=== PATIENT | female | born 1945 | race Caucasian/White ===

== ENCOUNTER 2018-08-16 20:24 | Emergency (ER) | payer OTHER ==
[~2018-08-16] VITALS: Ht 157.5 cm; Wt 63.5 kg
[~2018-08-16 20:24] MED LIST: DILT40TA; NAPR250T74
[2018-08-16] MEDS ORDERED: PANTOPRAZOLE 40 MG/10 ML VIAL IV ONE (22:00)
[2018-08-16 22:34] LABS: Hematocrit 16.2 % (36.0-46.0); Mean Corpuscular Hemoglobin 23.8 pg (28.0-32.0); Mean Corpuscular Hgb Conc. 30.8 g/dL (32.0-36.0); Mean Corpuscular Volume 77.3 fL (80.0-100.0); Platelet Count (auto) 350 10^3/uL (140-450); Red Cell Distribution Width 19.4 % (11.8-14.3); White Blood Cell 20.5 10^3/uL (4.4-10.8)
[2018-08-16 22:48] LABS: INR 1.06 (0.9-1.15); Prothrombin Time 11.3 sec (9.27-12.13)
[2018-08-16 22:52] LABS: Albumin 2.4 g/dL (3.4-5.0); BUN/Creatinine Ratio 41.9; Calcium 7.5 mg/dL (8.5-10.1); Potassium 4.1 mmol/L (3.5-5.1)
[2018-08-16 22:57] LABS: Bilirubin, Total 0.3 mg/dL (0.2-1.0); Total Protein 5.2 g/dL (6.4-8.2)
[2018-08-16] MEDS ORDERED: SODIUM CHLORIDE 0.9% 1,000 ML IV ONE (23:00)
[2018-08-16 23:10] LABS: Basophils % (manual) 0 (0.0-2.0); Blast Cells 0; Eosinophils % (manual) 0 (0-7); Myelocytes % 0; Promyelocytes % 0; Reactive Lymphocytes 0
[2018-08-17] VITALS (10 sets, daily range): BP systolic 121–136; BP diastolic 55–68
[2018-08-17 00:28] LABS: Band Neutrophils % (manual) 1; Lymphocytes % (manual) 2 (10.0-50.0); Metamyelocytes % 1; Monocytes % (manual) 9 (0-12)
[2018-08-17 01:20] LABS: Urine Bacteria FEW /hpf (None Seen); Urine Blood 2+ /uL (Negative); Urine Hyaline Cast FEW /lpf (0 - 2); Urine Mucus FEW (None Seen); Urine Specific Gravity 1.016 (1.001-1.035); Urine WBC 45 /hpf (0 - 5)
[2018-08-17] MEDS ORDERED: cefTRIAXone 1GM/50ML D5W 50 ML IV ONE (03:30)
[2018-08-17] MEDS ORDERED: metroNIDAZOLE 500MG/100ML 100 ML IV ONE (03:30)
[2018-08-17] MEDS ORDERED: PHYTONADIONE (VIT K)10 MG/ML 1ML VIAL SUBCUT ONE (04:00)
[2018-08-17] MEDS ORDERED: PANTOPRAZOLE 80 MG in SODIUM CHL 0.9% 60 ML IV ONE (04:15)
[2018-08-17] MEDS ORDERED: PANTOPRAZOLE 40 MG/10 ML VIAL IV ONE (04:57)
[2018-08-17] MEDS ORDERED: cefTRIAXone SOD 1,000 MG VL ONE (05:17)
== END 2018-08-17 07:47 | disposition short-term general hospital (02) ==
LOC: EDBD 20:24 → ER 20:24
DX: K92.2 Gastrointestinal hemorrhage, unspecified (principal); D64.9 Anemia, unspecified; D72.829 Elevated white blood cell count, unspecified; N39.0 Urinary tract infection, site not specified; N28.9 Disorder of kidney and ureter, unspecified; E11.65 Type 2 diabetes mellitus with hyperglycemia; I10 Essential (primary) hypertension; M19.90 Unspecified osteoarthritis, unspecified site; Z79.899 Other long term (current) drug therapy; Z98.51 Tubal ligation status
CPT/HCPCS: 36415; 36430; 70450; 71045; 74176; 80053; 81001; 84484; 85007; 85027; 85610; 86850; 86900; 86901; 86920; 87040; 93005; 96361; 96365; 96367; 96368; 96372; 96376; 99285; C9113; J0696; J3430; J3490; J7030; P9016; J7060

== ENCOUNTER 2024-09-29 19:37 | Inpatient (IN) | payer OTHER ==
[~2024-09-29] VITALS: Ht 162.6 cm; Wt 95.6 kg
[2024-09-29] MEDS: VANCOMYCIN 1GM/250ML KIT 250 ML IV ONE (00:15)
[2024-09-29] MEDS: SODIUM CHLORIDE 0.9% 1,000 ML IV ONE ×3 (00:30→23:30)
--- NOTE | 2024-09-29 20:14 | ED.PDOC ---
History of Present Illness HPI Comments This is a 79-year-old female who comes in with chief complaint of generalized weakness. The patient states that she has been feeling weak for the last one month. According to the family, the patient has been laying on the couch for approximately one week. They tried giving her some ensure to drink but unfor tunately she could not take that because she does not have an appetite. She denies any chest pain or shortness for breath. She is having some total body pain from her rheumatoid arthritis. She currently takes methotrexate for that. Upon arrival, the patient was Accu-Chek was 201. Initially, the patient was blood pressure was 87 systolic. Chief Complaint: General Weakness Time Seen by MD: 19:47 Primary Care Provider: JENS Mays Notes: Nurses Notes, Supervisor Dyer Notes, Medications, Allergies (No allergies to medications) Allergies: Coded Allergies: NO KNOWN ALLERGIES (Unverified , 01/19/12) Home Meds Reported Medications Naproxen (Naprosyn) 250 Mg Tab 01/19/12 Diltiazem Hcl (Cardizem) 30 Mg Tab 01/19/12 Information Source: Emergency Med Personnel Mode of Arrival: EMS Severity: Moderate Timing: Days Duration: Since onset Prehospital treatment: Cereal Maker, IVF Associated signs and symptoms Generalized weakness but no chest pain or shortness for breath Past Medical History PAST MEDICAL HISTORY: Arthritis (Rheumatoid arthritis), HTN Surgical History: BTL, Tonsillectomy Surgical History (Other): Cataract surgery, bilateral knee surgery METAL SOLDERER History: No Pertinent METAL SOLDERER History Family History Family History: Reviewed,noncontributory to illness Social History Smoker: Non-Smoker Alcohol: Occasionally Drugs: Denies Drug Use Lives In: Home Constitutional: reports: weakness; denies: chills, diaphoresis, fatigue, fever, malaise, sweats, others EENTM: denies: blurred vision, double vision, ear bleeding, ear discharge, ear drainage, ear pain, ear ringing, eye pain, eye redness, hearing loss, mouth pain, mouth swelling, nasal discharge, nose bleeding, nose congestion, nose pain, photophobia, tearing, throat pain, throat swelling, voice changes, others Respiratory: denies: cough, hemoptysis, orthopnea, SOB at rest, shortness of breath, SOB with excertion, stridor, wheezing, others Cardiovascular: denies: chest pain, dizzy spells, diaphoresis, Dyspnea on exertion, edema, irregular heart beat, left arm pain, lightheadedness, palpitations, PND, syncope, others Gastrointestinal: reports: poor appetite; denies: abdomen distended, abdominal pain, blood streaked bowels, constipated, diarrhea, dysphagia, difficulty swallowing, hematemesis, melena, nausea, poor fluid intake, rectal bleeding, rectal pain, vomiting, others Genitourinary: denies: abnormal vagina bleeding, burning, dyspareunia, dysuria, flank pain, frequency, hematuria, incontinence, pain, , vagina discharge, urgency, others Neurological: denies: dizziness, fainting, headache, left sided numbness, left sided weakness, numbness, paresthesia, pre-existing deficit, right sided numbness, right sided weakness, seizure, speech problems, tingling, tremors, weakness, others Musculoskeletal: denies: back pain, gout, joint pain, joint swelling, muscle pain, muscle stiffness, neck pain, others Integumetry: denies: bruises, change in color, change in hair/nails, dryness, laceration, lesions, lumps, rash, wounds, others Hematologic/Lymphatic: denies: anemia, blood clots, easy bleeding, easy bruising, swollen glands, others Endocrine: denies: excessive hunger, excessive sweating, excessive thirst, excessive urination, flushing, intolerance to cold, intolerance to heat, unexplained weight gain, unexplained weight loss, others Psychiatric: denies: anxiety, bipolar disorder, depression, hopeless, panic disorder, schizophrenia, sleepless, suicidal, others Physical Exam General Appearance: Moderate Distress, Other (Disheveled with skin infection and breakdown) HEENT: Normal ENT Inspection, Pharynx Normal, TMs Normal Neck: Full Range of Motion, Non-Tender, Normal, Normal Inspection Respiratory: Chest Non-Tender, Lungs Clear, No Accessory Muscle Use, No Respiratory Distress, Normal Breath Sounds Cardiovascular: No Edema, No JVD, No Murmur, No Gallop, Normal Peripheral Pulses, Regular Rate/Rhythm Breast Exam: Deferred Gastrointestinal: Diffuse, No Organomegaly, No Pulsatile Mass, Normal Bowel Sounds, Soft, Tenderness Genitalia: Deferred Pelvic: Deferred Rectal: Deferred Extremities: No calf tenderness, Normal capillary refill, Pedal edema Musculoskeletal : Apperance: Normal Neurologic: Alert, water and sewer systems supervisor II-XII nml as Tested, Motor Weakness, Normal Affect, Normal Mood, No Sensory Deficits Cerebellar Function: Normal Reflexes: Normal Skin: Dry, Warm, Other (Significant skin breakdown) Lymphatic: No Adenopathy Was a procedure done? Was a procedure done?: No EKG EKG : Pulse Rate (adult): 122 [place]: Normal Cardiac Rhythm: ST Block: None ST: Nonsp Differential Dx Considerations may include: Generalized weakness, electrolyte imbalance, dehydration, sepsis, UTI X-Ray, Labs, Meds, VS Vital Signs Date Time Temp Pulse Resp B/P (MAP) Pulse Ox O2 Delivery O2 Flow Rate FiO2 09/29/24 20:14 122 09/29/24 19:42 122 09/29/24 19:40 98.3 105 20 100/55 (70) 94 IV Hep-Lock was established The patient was being given normal saline as a bolus. The chest x-ray is negative The patient was being signed out to Dr. Kerns Images Reviewed?: Images reviewed and evaluated by me Time of 1ST Reevaluation: 20:14 Reevaluation 1ST: Unchanged Patient Education/Counseling: Diagnosis, Treatment, Prognosis Family Education/Counseling: No Family Present Departure 1 Departure Time of Disposition: 21:58 Impression: Primary Impression: Generalized weakness Disposition: 30 STILL A PATIENT Condition: Fair Critical Care Note Critical Care Time?: No Stability Stability form required: Yes Stable for transfer: Intended for transfer (Health plan request transfer), To designated facility Heart Score Heart Score: Heart Score Response (Comments) Value History N/A 0 EKG N/A 0 Age N/A 0 Risk Factors N/A 0 Troponin N/A 0 Total 0 DALLAS FABIAN MD Sep 29, 2024 20:14
--- NOTE | 2024-09-29 20:57 | DVH ---
CHEST RADIOGRAPH Indication: weakness Technique: Single frontal view of the chest was obtained COMPARISON: None FINDINGS: Lines and Tubes: None Lungs: Clear Pleura: No effusion.No pneumothorax. Cardiomediastinal contours: Unremarkable IMPRESSION: No abnormality demonstrated.
[2024-09-29] MEDS: SODIUM CHLORIDE 0.9% 500 ML IVB ONE (22:04)
[2024-09-29 22:09] LABS: Urine Bacteria MANY /hpf (None Seen); Urine Blood 1+ /uL (Negative); Urine Clarity Ex.Turbid (Clear); Urine Color YELLOW (Yellow); Urine Mucus MODERATE (None Seen); Urine Protein, UAD 1+ (Negative); Urine Specific Gravity 1.015 (1.001-1.035); Urine Squamous Epithelial Cell None Seen /hpf (<5); Urine Urobilinogen Normal (Negative); Urine WBC 482 /HPF (0-5); Urine pH 5.5 (5.0-9.0)
[2024-09-29 22:28] LABS: White Blood Cell 3.3 10^3/uL (4.4-10.8)
[2024-09-29 22:30] VITALS: PULSE 130; RESP 24; O2SAT 99
[2024-09-29 22:30] LABS: Hematocrit 13.1 % (36.0-46.0); Mean Corpuscular Hemoglobin 35.4 pg (28.0-32.0); Mean Corpuscular Volume 107.3 fL (80.0-100.0); Red Blood Cells 1.22 10^6/uL (4.0-5.20)
[2024-09-29 22:31] LABS: Red Cell Distribution Width 28.9 % (11.8-14.3)
[2024-09-29 22:32] LABS: Hemoglobin 4.3 g/dL (12.2-16.2); Platelet Count (auto) 15 10^3/uL (140-450)
[2024-09-29 22:34] LABS: Band Neutrophils % (manual) 0; Basophils % (manual) 0 (0.0-2.0); Blast Cells 0; Eosinophils % (manual) 0 (0-7); Metamyelocytes % 0; Myelocytes % 0; Promyelocytes % 0; Reactive Lymphocytes 0
[2024-09-29 22:44] LABS: Alanine Aminotransferase 11 U/L (7-40); Alkaline Phosphatase 80 U/L (46-116); Anion Gap 18 (5-15); BUN/Creatinine Ratio 43.7 (10.0-20.0); Calcium 8.8 mg/dL (8.7-10.4); Chloride 102 mmol/L (98-107); Potassium 4.3 mmol/L (3.5-5.1)
[2024-09-29 22:50] LABS: Lymphocytes % (manual) 25 (10.0-50.0); Monocytes % (manual) 1 (0-12)
[2024-09-29 22:51] LABS: Anisocytosis Slight; Platelet Estimate Decreased
[2024-09-29 22:52] LABS: Aspartate Aminotransferase 11 U/L (13-40); Bilirubin, Total 2.4 mg/dL (0.2-1.0); Blood Urea Nitrogen 31 mg/dL (9-23); Carbon Dioxide 12 mmol/L (20-31); Glucose 278 mg/dL (74-106); Ovalocytes FEW; Sodium 132 mmol/L (136-145); Total Protein 5.1 g/dL (5.7-8.2)
[2024-09-29 22:53] LABS: Albumin 3.2 g/dL (3.2-4.8); Lactic Acid w/Reflex 10.1 mmol/L (0.4-2.0)
--- NOTE | 2024-09-29 22:53 | ED.PDOC ---
History of Present Illness HPI Comments This is a 79-year-old female who comes in with chief complaint of generalized weakness. Per son, the patient is reported to have been feeling weak for past month, while dealing with a cold, and was found, today, sitting in her own urine and feces after being unable to move from her couch for a week when she began refusing to eat secondary to poor appetite. Son comments on roommate checking in on patient, occasionally, but never noticing on the patient's deteriorating condition or being asked by the patient for any assistance. Patient has no reported additional symptoms at this time. Chief Complaint: General Weakness Time Seen by MD: 20:30 Primary Care Provider: JENS Reviewed Notes: Nurses Notes, Jig Builder Notes, Medications, Allergies Allergies: Coded Allergies: NO KNOWN ALLERGIES (Unverified , 01/19/12) Home Meds Reported Medications Naproxen (Naprosyn) 250 Mg Tab 01/19/12 Diltiazem Hcl (Cardizem) 30 Mg Tab 01/19/12 Information Source: Relative (Child), Emergency Med Personnel, [facility] Medical Record Mode of Arrival: EMS Severity: Moderate Timing: Months Duration: Since onset Prehospital treatment: 12 Lead EKG, Armoring Machine Operator Review of Systems: REVIEW OF SYSTEMS: No fever, no chills, or fatigue HEENT: No sore throat, no earache, no congestion, no neck pain. Cardiac: No chest pain. No palpitations. Lungs: No shortness of breath, no cough. GI: No nausea, no vomiting, no diarrhea, no constipation, no abdominal pain : No dysuria, frequency, or urgency. No hematuria. Musculoskeletal: No joint pain , no joint swelling, no extremity edema. Skin: No rash, no itching. Neuro: Weakness. No headache, no dizziness Vital Signs Vital Signs Date Time Temp Pulse Resp B/P (MAP) Pulse Ox O2 Delivery O2 Flow Rate FiO2 09/30/24 04:15 105 20 86/44 (58) 98 09/30/24 04:15 98.3 98.3 09/29/24 22:30 Room Air* 0 21 Physical Exam General: Awake, alert and oriented. No acute distress. Skin: Skin in warm, dry and intact without rashes or lesions. HEENT: The head is normocephalic and atraumatic. Conjunctivae are clear without exudates or hemorrhage. Sclera is non-icteric. Neck: Normal range of motion. No JVD. Cardiac: Regular rate Respiratory: No signs of respiratory distress. No Stridor. Genitals: ulceration to left inguinal area Musculoskeletal: patient declined evaluation of her sacral area at this time Extremities: Upper and lower extremities are atraumatic in appearance without tenderness or deformity. Neurological: The patient is awake, alert and oriented to person, place, and time with normal speech. Speech is clear. There is no facial asymmetry. Psychiatric: Appropriate mood and affect. Good judgement and insight. No visual or auditory hallucinations. No suicidal or homicidal ideation. Past Medical History PAST MEDICAL HISTORY: Arthritis (Rheumatoid arthritis), HTN Past Medical History (Other): History of frequent falls Surgical History: BTL, Tonsillectomy Surgical History (Other): Cataract surgery, bilateral knee surgery ECG TECHNICIAN History: No Pertinent ECG TECHNICIAN History Family History Family History: Reviewed,noncontributory to illness Social History Smoker: Non-Smoker Alcohol: Occasionally Drugs: Denies Drug Use Lives In: Home Was a procedure done? Was a procedure done?: No EKG EKG #1: Pulse Rate (adult): 122 [place]: Normal Cardiac Rhythm: ST Block: None Hypertrophy: None ST: Normal EKG #2: Pulse Rate (adult): 141 [place]: Normal Cardiac Rhythm: ST Block: None Hypertrophy: None ST: Normal Differential Dx Considerations may include: Differential diagnosis considered includes but not limited to stroke, head injury, seizure, metabolic disturbance, electrolyte imbalance, infection, substance intoxication, psychiatric cause, other systemic illness, other X-Ray, Labs, Meds, VS Vital Signs Date Time Temp Pulse Resp B/P (MAP) Pulse Ox O2 Delivery O2 Flow Rate FiO2 09/30/24 04:15 105 20 86/44 (58) 98 09/30/24 04:15 98.3 105 20 86/44 98.3 09/30/24 04:00 110 09/30/24 03:30 98.3 113 20 91/45 98.3 09/30/24 03:00 98.5 107 21 90/40 98.5 09/30/24 02:30 98.4 118 20 93/34 98.4 09/30/24 02:15 98.1 116 23 94/40 98.1 09/30/24 02:15 98.1 116 23 94/40 (58) 98 98.1 09/30/24 01:55 98.3 112 22 112/52 98.3 09/30/24 00:29 125 24 106/43 (64) 99 09/30/24 00:00 125 09/29/24 22:53 141 09/29/24 22:30 130 24 99 Room Air* 0 21 09/29/24 22:30 97.5 130 24 183/133 (150) 97.5 09/29/24 22:12 141 09/29/24 22:12 97.0 148 22 88/43 (58) 87 97.0 09/29/24 20:14 122 09/29/24 19:42 122 09/29/24 19:40 98.3 105 20 100/55 (70) 94 Lab Test 09/30/24 01:08 09/30/24 00:09 09/29/24 23:20 09/29/24 22:59 Range/Units Troponin I High Sensitivity 39 *H </=34 ng/L Lactic Acid Level 8.5 *H 0.4-2.0 mmol/L Influenza Type A Antigen Negative Negative Influenza Type B Antigen Negative Negative SARS-CoV-2 Antigen (Rapid) Negative NEGATIVE Ammonia 31 11-32 umol/L Test 09/29/24 22:54 09/29/24 22:00 Range/Units Troponin I High Sensitivity 5 5 </=34 ng/L White Blood Count 3.3 L 4.4-10.8 10^3/uL Red Blood Count 1.22 L 4.0-5.20 10^6/uL Hemoglobin 4.3 *L 12.2-16.2 g/dL Hematocrit 13.1 L 36.0-46.0 % Mean Corpuscular Volume 107.3 H 80.0-100.0 fL Mean Corpuscular Hemoglobin 35.4 H 28.0-32.0 pg Mean Corpuscular Hemoglobin Concent 33.0 32.0-36.0 g/dL Red Cell Distribution Width 28.9 H 11.8-14.3 % Platelet Count 15 *L 140-450 10^3/uL Mean Platelet Volume 9.8 6.9-10.8 fL Neutrophils (%) (Auto) 37.0-80.0 % Lymphocytes (%) (Auto) 10.0-50.0 % Monocytes (%) (Auto) 0.0-12.0 % Basophils (%) (Auto) 0.0-2.0 % Neutrophils # (Auto) 1.6-8.6 10 ^3/uL Lymphocytes # (Auto) 0.4-5.4 10 ^3/uL Monocytes # (Auto) 0-1.3 10 ^3/uL Differential Total Cells Counted 100.0 100 Neutrophils % (Manual) 74 37.0-80.0 Band Neutrophils % (Manual) 0 Lymphocytes % (Manual) 25 10.0-50.0 Monocytes % (Manual) 1 0-12 Eosinophils % (Manual) 0 0-7 Basophils % (Manual) 0 0.0-2.0 Metamyelocytes % (manual) 0 Myelocytes % (Manual) 0 Promyelocytes % (Manual) 0 Blast Cells % (Manual) 0 Reactive Lymphocytes 0 Platelet Estimate Decreased Anisocytosis (manual) Slight Microcytosis Slight Ovalocytes Few Schistocytes Few Prothrombin Time 13.1 H 9.3-11.8 sec Prothrombin Time INR 1.26 H 0.9-1.15 Urine Color Yellow Yellow Urine Clarity Ex.turbid Clear Urine pH 5.5 5.0-9.0 Urine Specific [place] 1.015 1.001-1.035 Urine Protein 1+ H Negative Urine Ketones Negative Negative Urine Blood 1+ H Negative /uL Urine Nitrite Negative Negative Urine Bilirubin Negative Negative Urine Urobilinogen Normal Negative mg/dL Urine Leukocyte Esterase 3+ Negative /uL Urine RBC None seen 0 - 4 /hpf Urine Microscopic WBC 482 H 0-5 /HPF Urine Squamous Epithelial Cells None seen <5 /hpf Urine Bacteria Many H None Seen /hpf Urine Mucus Moderate None Seen Urine Glucose Normal Normal mg/dL Sodium Level 132 L 136-145 mmol/L Potassium Level 4.3 3.5-5.1 mmol/L Chloride Level 102 98-107 mmol/L Carbon Dioxide Level 12 L 20-31 mmol/L Anion Gap 18 H 5-15 Blood Urea Nitrogen 31 H 9-23 mg/dL Creatinine 0.71 0.550-1.02 mg/dL Glomerular Filtration Rate Calc 86 >90 mL/min BUN/Creatinine Ratio 43.7 H 10.0-20.0 Serum Glucose 278 H 74-106 mg/dL Lactic Acid Level 10.1 *H 0.4-2.0 mmol/L Calcium Level 8.8 8.7-10.4 mg/dL Magnesium Level 1.9 1.6-2.6 mg/dL Total Bilirubin 2.4 H 0.2-1.0 mg/dL Aspartate Amino Transferase (AST) 11 L 13-40 U/L Alanine Aminotransferase (ALT) 11 7-40 U/L Alkaline Phosphatase 80 46-116 U/L Creatine Kinase 21 L 34-145 U/L C-Reactive Protein High Sensitivity 10.66 H <1.0 mg/dL Total Protein 5.1 L 5.7-8.2 g/dL Albumin 3.2 3.2-4.8 g/dL Thyroid Stimulating Hormone (TSH) 0.97 0.55-4.78 uIU/mL Plasma/Serum Blood Alcohol < 3.0 <10 mg/dL Current Medications Medications (Trade) Dose Ordered Sig/Jovon Route Start Time Stop Time Status Last Admin Sodium Chloride 500 ml @ 500 mls/hr Q1H ONCE IVB 09/29/24 20:00 09/29/24 20:59 DC 09/29/24 22:04 Sodium Chloride 1,000 ml @ 1,000 mls/hr Q1H ONCE IV 09/29/24 23:30 09/30/24 00:29 DC 09/29/24 23:30 Sodium Chloride 1,000 ml @ 1,000 mls/hr Q1H ONCE IV 09/29/24 23:30 09/30/24 00:29 DC 09/29/24 23:30 Sodium Chloride 1,000 ml @ 130 mls/hr Q7H42M ONCE IV 09/29/24 23:30 09/30/24 07:11 09/29/24 00:30 Ceftriaxone Sodium 50 ml @ 100 mls/hr ONCE ONCE IV 09/29/24 23:30 09/29/24 23:59 DC 09/29/24 23:45 Vancomycin HCl 250 ml @ 250 mls/hr ONCE ONCE IV 09/29/24 23:30 09/30/24 00:29 DC 09/29/24 00:[address] [address] Ph: [phone] DIAGNOSTIC IMAGING Diagnostic Imaging Report : [id number] Signed PATIENT: AILIN JORGENSEN ACCT: [id number] UNIT: [id number] : 1945 LOC: ER ROOM / BED: / AGE / SEX: 79 / F ADM STATUS: REG ER SERVICE 54 ORDERING PHYSICIAN: DALLAS FABIAN MD PROCEDURE(s): CXRP - CHEST PORTABLE REASON: weakness ORDER NUMBER(s): [id number], ACCESSION NUMBER(s): [id number] CHEST RADIOGRAPH Indication: weakness Technique: Single frontal view of the chest was obtained COMPARISON: None FINDINGS: Lines and Tubes: None Lungs: Clear Pleura: No effusion.No pneumothorax. Cardiomediastinal contours: Unremarkable IMPRESSION: No abnormality demonstrated. ATED BY: JOHNNY HAMILTON MD DICTATED DATE/TIME: 09/29/242054 SIGNED BY: JOHNNY HAMILTON MD SIGNED DATE/TIME: 09/29/242054 CC: Time of 1ST Reevaluation: 21:58 Reevaluation 1ST: Unchanged Patient Education/Counseling: Diagnosis, Treatment, Other (Need to admit) Family Education/Counseling: Diagnosis, Treatment, Other (Need to admit) Departure 1 Departure Time of Disposition: 21:58 Impression: Primary Impression: Generalized weakness Disposition: 30 STILL A PATIENT Condition: Fair Comments 79-year-old female who presents to the emergency department with generalized weakness. Found to have suspected sepsis likely secondary to urinary tract infection, hyponatremia, hypotension, severe anemia requiring blood transfusion. Antibiotics, blood transfusion initiated in the emergency department. Levophed initiated for systolic blood pressure remaining in the 90s over 40s. Patient remained awake, alert oriented. Patient admitted for further treatment, katerine luation and monitoring. Authorization number [id number] (Dr. Smith @3:25am) Extensive evaluation was performed in attempt to identify or rule out: (See differential diagnosis section) The following tests were ordered, and results were reviewed by me: (See diagnostic results section) The following test were independently interpreted by me: N/A I reviewed and agreed with the following test results read by other providers: N/A I reviewed the following notes from the pt's past medical encounters: [August 16, 2018 encounter for GI bleeding] Additional information was gathered from interviewing the following independent historians: Son at bedside Discussion of management or test interpretation with external physician/other qualified health care manager cna: Dr. Fabian, Dr. Smith Addressed an acute or chronic illness that poses a threat to life or bodily function: Severe anemia requiring blood transfusion, suspected sepsis, hyponatremia, Decision regarding hospitalization or escalation of hospital level of care: Risk and benefits of admission for further treatment of patient's condition was considered. Due to patient's current clinical condition, high risk of decline and poor outcome if discharged and need for further inpatient management and monitoring, patient will be admitted to the hospital. Drug therapy requiring intensive monitoring for toxicity: N/A Parenteral controlled substances: N/A Decision regarding elective major surgery with identified patient or procedure risk factors: N/A Decision regarding emergency major surgery: N/A Decision not to resuscitate or to de-escalate care because of poor prognosis: N/A Diagnosis or treatment significantly limited by social determinants of health: N/A Critical Care Note Critical Care Time?: Yes (45 min-critical care time only) Stability Stability form required: No Heart Score Heart Score: Heart Score Response (Comments) Value History N/A 0 EKG N/A 0 Age N/A 0 Risk Factors N/A 0 Troponin N/A 0 Total 0 I personally scribed for MIKEY HAIRSTON MD ([email or web address]) on 09/29/24 at 22:53. Electronically submitted by Neel Zhao ([email or web address]). I personally scribed for MIKEY HAIRSTON MD ([email or web address]) on 09/30/24 at 00:01. Electronically submitted by Neel Zhao ([email or web address]). MIKEY HAIRSTON MD Sep 29, 2024 22:53
[2024-09-29 23:01] LABS: INR 1.26 (0.9-1.15); Prothrombin Time 13.1 sec (9.3-11.8)
[2024-09-29 23:07] LABS: Magnesium 1.9 mg/dL (1.6-2.6)
[2024-09-29 23:10] LABS: Blood Alcohol < 3.0 mg/dL (<10); Creatine Kinase IFCC 21 U/L (34-145)
[2024-09-29 23:17] LABS: CRP High Sensitivity 10.66 mg/dL (<1.0)
[2024-09-29] MEDS: cefTRIAXone 1GM/50ML D5W 50 ML IV ONE (23:45)
[2024-09-30] VITALS (65 sets, daily range): BP systolic 86–127; BP diastolic 34–77; PULSE 78–122; RESP 13–23; TEMP 97.7–98.5; O2SAT 97–100
[2024-09-30] LABS: COVID19 ANTIGEN SOFIA FIA NEGATIVE (NEGATIVE); Rapid Influenza A Negative (Negative); Rapid Influenza B Negative (Negative)
--- NOTE | 2024-09-30 02:30 | DVH ---
EXAM: CT HEAD WITHOUT CONTRAST INDICATION: Altered mental status TECHNIQUE: CT of the head without intravenous contrast. Radiation Dose Information: CT Dose: CTDI volume is 50.77 mGy. Dose-length product is 1541.26 mGy*cm The dose indicators for CT are the volume Computed Tomography (CT) Dose Index (CTDIvol) and the Dose Length Product (DLP), and are measured in units of mGy and mGy-cm, respectively. These indicators are not patient dose, but values generated from the CT scanner acquisition factors. The report includes radiation exposure data for exposures received during this examination. COMPARISON: None FINDINGS: There is no evidence of acute intracranial hemorrhage, extra-axial collection, mass effect, midline s hift, herniation or hydrocephalus. The ventricles, sulci and cisterns are age appropriate. Right frontal calcified meningioma. The farmer-white differentiation is intact. Patchy periventricular and subcortical white matter hypoattenuation is nonspecific but may be related to small vessel ischemic disease. The visualized paranasal sinuses and mastoid air cells are clear. The surrounding soft tissues and osseous structures are unremarkable. IMPRESSION: 1. No acute intracranial abnormality.
--- NOTE | 2024-09-30 02:37 | DVH ---
Exam: CT CT AB PEL WITH IV CON ONLY History: Suspected sepsis Comparison Study: None available at time of dictation. Contrast: 100 cc Omnipaque 300 TECHNIQUE: A digital sheet rock taper image was obtained. During the uneventful, intravenous administration of c ontrast material, multislice data acquisition was obtained through the abdomen and pelvis. The data s et was subsequently reconstructed into axial images. Images were reviewed on a work station using a c ombination of axial and multiplanar using a variety of window levels and settings. All CT scans at this medical facility are performed using dose modulation techniques as appropriate t o a performed exam including the following: Automated exposure control was utilized; adjustment of th e MA and/or KV according to patient size; and use of iterative reconstruction technique. Radiation Dose Information: CT Dose: Dose-length product is 1541.3 mGy*cm FINDINGS: Imaged portions of the lung bases demonstrate bibasilar airspace opacities with small right pleural e ffusion and trace left pleural effusion. Nodular opacity in the right lower lobe measuring 3.0 cm. Liver, spleen, pancreas and adrenal glands appear unremarkable. The kidneys enhance symmetrically. 1. 0 cm right renal cyst. 1.1 cm calculus in the left renal pelvis with mild prominence of the left kailey l collecting system. Additional 4 mm calculus in the left upper pole. The gallbladder appears mildly prominent with enhancement of the gallbladder wall and trace pericholecystic fluid. The uterus is retroverted live multiple fibroids some of which are calcified. The ascending colon dem onstrates mild wall thickening. Similar appearance of the descending colon. Marked diverticulosis of the sigmoid colon. Small amount of free fluid. No evidence of free intraperitoneal air. Bilateral fe moral hardware is noted. IMPRESSION: 1. Trace bilateral pleural effusion with bibasilar opacities. More nodular opacity in the right lowe r lobe may represent focal infectious process or round atelectasis. 2. Prominent gallbladder with mild pericholecystic fluid, nonspecific, correlation with clinical symp toms and possible ultrasound is recommended. 3. Nonspecific colonic wall thickening may represent colitis versus nondistention. 4. 1.1 cm calculus in the left renal pelvis with mildly prominent left renal collecting system.
[2024-09-30] MEDS: IOHEXOL 300 MG/ML 100ML BOTTLE IJ ONE (02:57)
[2024-09-30] MEDS: NOREPINEPHRINE 8 MG/250ML KIT 250 ML IV SCH (05:30)
--- NOTE | 2024-09-30 05:41 | DVH ---
EXAM: XR Chest, 1 View CLINICAL INDICATION: post central line TECHNIQUE: Frontal view of the chest. COMPARISON: XY CHEST PORTABLE on DOS: 09/29/24 FINDINGS: LUNGS AND PLEURAL SPACES: Pulmonary congestion. HEART: Unremarkable. No cardiomegaly. MEDIASTINUM: Unremarkable. Normal mediastinal contour. BONES/JOINTS: Unremarkable. No acute fracture. TUBES, LINES AND DEVICES: Right IJ venous catheter with distal tip in SVC. No pneumothorax. OTHER FINDINGS: . IMPRESSION: Right IJ venous catheter with distal tip in SVC. No pneumothorax.
[2024-09-30] MEDS ORDERED: MORPHINE SULFATE INJ 2 MG/ml SYRG IV PRN (05:45)
[2024-09-30] MEDS ORDERED: VANCOMYCIN PER PHARMACY 0 MG IV SCH (05:45)
--- NOTE | 2024-09-30 05:58 | DVHHPRES ---
History of Present Illness Resident Creating Document: CAROLYNN GIRON RESIDENT History of Present Illness Martine Peñaloza is a 79-year-old female patient who presents to ED via EMS with chief complaint of generalized weakness for the past month associated with loss of appetite. Patient's son reports that when he came to visit her on 09/29/2024, he found her in her feces lying on the floor, deciding to call EMS. Per patient she has no complaints. Son reports that before she was able to eat solid foods, but has only been able to drink ensure in the past few weeks, ass ociated with unintentional weight loss. Review of system is unremarkable per patient. Past medical history: Hypertension, upper GI bleed secondary to peptic ulcer due to ibuprofen abuse in 2018, rheumatoid arthritis currently on methotrexate, urinary incontinence. Surgical history: EGD and colonoscopy which showed no malignancy per patient (in 2018), bilateral knee repair and bilateral hip replacement. Family history: Unknown (patient is adopted) Social history: She lives with a roommate for the past six months who is taking care of her. She drinks one my cards eliminate per day. Denies current tobacco, alcohol and other drug abuse Allergies: Denies Home medication: Methotrexate, folic acid and lidocaine (unsure why she takes the lidocaine) Patient seen and examined at bedside. Currently feels weak, has no new complaints. Place central line confirming position with chest x-ray, ruled out pneumothorax. Patient has been upgraded to [facility] due to requirement of IV vasopressors at this time. Past Medical History Per HPI Past Surgical History Per HPI Family History Per HPI Past Social History Per HPI Review of Systems Allergies: Coded Allergies: NO KNOWN ALLERGIES (Unverified , 01/19/12) Medications Current Medications Medications Dose Ordered Sig/Jovon Route Start Time Stop Time Status Last Admin Dose Admin Norepinephrine Bitartrate 250 ml @ 3.75 mls/hr Q24H IV 09/30/24 04:00 09/30/24 05:30 3.75 MLS/HR Exam Vital Signs Vital Signs Date Time Temp Pulse Resp B/P (MAP) Pulse Ox O2 Delivery O2 Flow Rate FiO2 09/30/24 05:30 98/50 09/30/24 04:15 105 20 98 09/30/24 04:15 98.3 98.3 09/29/24 22:30 Room Air* 0 21 Exam Patient lying in bed, in no acute distress General: Lucid, afebrile, mucosae are dry, conjunctivae is pale Cardiovascular: Normal S1 and S2. No murmurs, gallops or rubs Respiratory: Normal ventilation mechanics. Clear lung sounds on auscultation Abdomen: Soft, nontender, no organomegaly, normal bowel sounds. Digital rectal exam showed no masses, no active bleeding. MSK/skin: Mobilizes 4 limbs. Skin is dry and warm. Has bilateral leg erythema predominantly on left leg, bilateral infrapatellar pitting edema Neurological: Oriented in 3 spheres. No motor no sensitive deficits. Pupils are isocoric and reactive Labs/Xrays Labs Test 09/30/24 05:25 09/30/24 01:08 09/30/24 00:09 09/29/24 23:20 Range/Units Troponin I High Sensitivity 39 *H </=34 ng/L Lactic Acid Level 8.5 *H 0.4-2.0 mmol/L Influenza Type A Antigen Negative Negative Influenza Type B Antigen Negative Negative SARS-CoV-2 Antigen (Rapid) Negative NEGATIVE Test 09/29/24 22:59 09/29/24 22:00 Range/Units Ammonia 31 11-32 umol/L White Blood Count 3.3 L 4.4-10.8 10^3/uL Red Blood Count 1.22 L 4.0-5.20 10^6/uL Hemoglobin 4.3 *L 12.2-16.2 g/dL Hematocrit 13.1 L 36.0-46.0 % Mean Corpuscular Volume 107.3 H 80.0-100.0 fL Mean Corpuscular Hemoglobin 35.4 H 28.0-32.0 pg Mean Corpuscular Hemoglobin Concent 33.0 32.0-36.0 g/dL Red Cell Distribution Width 28.9 H 11.8-14.3 % Platelet Count 15 *L 140-450 10^3/uL Mean Platelet Volume 9.8 6.9-10.8 fL Neutrophils (%) (Auto) 37.0-80.0 % Lymphocytes (%) (Auto) 10.0-50.0 % Monocytes (%) (Auto) 0.0-12.0 % Basophils (%) (Auto) 0.0-2.0 % Neutrophils # (Auto) 1.6-8.6 10 ^3/uL Lymphocytes # (Auto) 0.4-5.4 10 ^3/uL Monocytes # (Auto) 0-1.3 10 ^3/uL Differential Total Cells Counted 100.0 100 Neutrophils % (Manual) 74 37.0-80.0 Band Neutrophils % (Manual) 0 Lymphocytes % (Manual) 25 10.0-50.0 Monocytes % (Manual) 1 0-12 Eosinophils % (Manual) 0 0-7 Basophils % (Manual) 0 0.0-2.0 Metamyelocytes % (manual) 0 Myelocytes % (Manual) 0 Promyelocytes % (Manual) 0 Blast Cells % (Manual) 0 Reactive Lymphocytes 0 Platelet Estimate Decreased Anisocytosis (manual) Slight Microcytosis Slight Ovalocytes Few Schistocytes Few Prothrombin Time 13.1 H 9.3-11.8 sec Prothrombin Time INR 1.26 H 0.9-1.15 Urine Color Yellow Yellow Urine Clarity Ex.turbid Clear Urine pH 5.5 5.0-9.0 Urine Specific [place] 1.015 1.001-1.035 Urine Protein 1+ H Negative Urine Ketones Negative Negative Urine Blood 1+ H Negative /uL Urine Nitrite Negative Negative Urine Bilirubin Negative Negative Urine Urobilinogen Normal Negative mg/dL Urine Leukocyte Esterase 3+ Negative /uL Urine RBC None seen 0 - 4 /hpf Urine Microscopic WBC 482 H 0-5 /HPF Urine Squamous Epithelial Cells None seen <5 /hpf Urine Bacteria Many H None Seen /hpf Urine Mucus Moderate None Seen Urine Glucose Normal Normal mg/dL Sodium Level 132 L 136-145 mmol/L Potassium Level 4.3 3.5-5.1 mmol/L Chloride Level 102 98-107 mmol/L Carbon Dioxide Level 12 L 20-31 mmol/L Anion Gap 18 H 5-15 Blood Urea Nitrogen 31 H 9-23 mg/dL Creatinine 0.71 0.550-1.02 mg/dL Glomerular Filtration Rate Calc 86 >90 mL/min BUN/Creatinine Ratio 43.7 H 10.0-20.0 Serum Glucose 278 H 74-106 mg/dL Calcium Level 8.8 8.7-10.4 mg/dL Magnesium Level 1.9 1.6-2.6 mg/dL Total Bilirubin 2.4 H 0.2-1.0 mg/dL Aspartate Amino Transferase (AST) 11 L 13-40 U/L Alanine Aminotransferase (ALT) 11 7-40 U/L Alkaline Phosphatase 80 46-116 U/L Creatine Kinase 21 L 34-145 U/L C-Reactive Protein High Sensitivity 10.66 H <1.0 mg/dL Total Protein 5.1 L 5.7-8.2 g/dL Albumin 3.2 3.2-4.8 g/dL Thyroid Stimulating Hormone (TSH) 0.97 0.55-4.78 uIU/mL Plasma/Serum Blood Alcohol < 3.0 <10 mg/dL Assessment/Plan Assessment/Plan Assessment: Mixed shock (Hypovolemic and septic) Severe anemia Severe thrombocytopenia Pancytopenia Cellulitis of lower left limb UTI NSTEMI probable type 2 Hyperlacticacidemia Rheumatoid arthritis History of bleed secondary to peptic ulcer Urinary incontinence Rule out DVT Plan: Currently required 2 units of blood. Indicated one pack of platelets On IV fluids with regular response, currently under IV vasopressors Under empiric IV antibiotic (vancomycin and cefepime) Ordered anemia workup On IV Protonix due to history of GI bleed. Ordered stool occult blood Discontinue methotrexate at this time. Ordered bilateral lower limb extremity ultrasound to rule out DVT Goals of care discussed with patient for over 18 minutes: Full code status Discussed plan with Dr. Thakkar, patient, son and nurses: We will admit to [facility] due to requirement of IV vasopressors. We will keep patient NPO. Continue with IV fluids, IV vasopressors, IV antibiotics and discontinue methotrexate. Patient may eventually need bone marrow biopsy if she does not respond to medical management. Patient has poor prognosis Critical care time spent including discussion with nursing and family: 83 minutes Patient unstable for transfer. Plan discussed with: Patient, Son, Other (Nurses) My Orders Orders - CAROLYNN GIRON RESIDENT Procedure Category Date Status Time Magnesium LAB 09/30/24 Verified 05:34 Phosphorus LAB 09/30/24 Verified 05:34 Complete Blood Count LAB 09/30/24 Verified 05:34 Comprehensive LAB 09/30/24 Verified Metabolic Panel 05:34 C-Reactive Protein LAB 09/30/24 Verified 05:34 Lactic Acid W/ Reflex LAB 09/30/24 Verified Order 05:34 Lipid Panel LAB 09/30/24 Verified 05:34 Drug Screen LAB 09/30/24 Verified 05:34 Vitamin D, 25-Hydroxy LAB 09/30/24 Verified 05:34 Vitamin B12 LAB 09/30/24 Verified 05:34 Thyroid Stimulating LAB 09/30/24 Verified Hormone 05:34 Admit ADMIT 09/30/24 Verified 05:34 Code Status CODE 09/30/24 Verified 05:34 Vital Signs [facility] 09/30/24 Verified 05:34 Review Orders With [facility] 09/30/24 Verified Adm. 05:34 Npo (Nothing By DIET 09/30/24 Verified Mouth) Diet Breakfast Notify Md Of Changes [facility] 09/30/24 Verified From Base 05:34 Advance Directive [facility] 09/30/24 Verified 05:34 Echo 2d Mode Cardiac US 09/30/24 Verified DOP 05:34 Urine Bacterial [place] 09/30/24 Verified Culture 05:34 Patient Condition ORDERS 09/30/24 Verified 05:34 Allergies [facility] 09/30/24 Verified 05:34 Hemoglobin A1c LAB 09/30/24 Verified 05:34 Morphine 2mg Iv Q4hprn [facility] 09/30/24 Verified 05:45 Oxygen By Nasal RT 09/30/24 Verified Cannula 05:34 Stat Ekg For Chest [facility] 09/30/24 Verified Pain 05:34 Notify Md Of Changes [facility] 09/30/24 Verified From Base 05:34 Hr Intern For [facility] 09/30/24 Verified 24 Hours 05:34 Emergency Dysrhythmia [facility] 09/30/24 Verified Protocol 05:34 Rhythm Strips Once [facility] 09/30/24 Verified Every Shift 05:34 Vancomycin Per [facility]A 09/30/24 Verified Pharmacy 05:45 Cefepime 1 Gm [facility] 09/30/24 Verified 10:00 Cefepime 1 Gm PH[facility] 09/30/24 Verified 05:45 NS PHA 09/30/24 Verified 05:45 NS PHA 09/30/24 Verified 05:45 Date of Service: Sep 30, 2024 Billing Provider: NEHAL THAKKAR MD Common Visit Codes: 18568-[id number] INP/OBS CARE (HIGH) Secondary Visit Codes: [id number] CARE PLAN 30 MINUTES CAROLYNN GIRON RESIDENT Sep 30, 2024 05:58 NEHAL THAKKAR MD Sep 30, 2024 17:44
[2024-09-30] MEDS: PANTOPRAZOLE 40 MG/10 ML VIAL INJ IV ONE (06:00)
--- NOTE | 2024-09-30 06:12 | DVHNC2 ---
[facility]ERRY [facility]ARVIN [facility] 09/30/24 0612: Procedure - Central Line Procedure Note Date and time: 09/30/2024, at 5:00 a.m. Indication:Vascular Access Central Line Location: Right Internal Jugular Vein Procedure Counselor Marriage And Family: Merry Garvin, Resident Attending Physician: Dr. Cooper Consent: Consent was obtained from patient's son prior to the procedure. Indications, risks and benefits were discussed prior to the procedure. Procedure Summary: A time out was performed. My hands were washed immediately prior to the procedure. I wore a surgical cap, mask with protective eyewear, full gown and sterile gloves throughout the procedure. The patient was placed in Trendelenburg position, with head turned 30 degrees away from the insertion site. The Right was prepped using chlorhexidine scrub (and draped in sterile fashion using a three quarter sheet drape and sterile towels. Skin preparation was allowed to dry prior to skin puncture. Anatomic landmarks were identified. Anesthesia was achieved over the vein using 5ml of 1% lidocaine. Using real-time ultrasound, with sterile probe cover and sterile gel, the Right was identified on ultrasound using the linear ultrasound probe in the transverse orientation. The right carotid artery was identified and avoided utilizing color-flow. The Internal Jugular Vein was then placed in the center of the ultrasound field and compressed for patency. The introducer needle was inserted into the vein under direct ultrasound vis ualization, and a movement artifact was identified as the needle was advanced through the skin toward the vessel. A real-time hyperechoic signal revealed visualization of vascular needle entry into the lumen as blood was noted to flashback in the syringe. The needle was then held in place, the syringe was removed, and the guide wire was advanced through the needle. Direct visualiza tion of the guide wire location within the vein was noted on ultrasound, indicating proper placement. The needle was then removed. A small incision was made at the skin surface with a scalpel, and a skin dilator was advanced over the guide wire. After appropriate dilation was obtained, the dilator was removed, and a triple-lumen catheter was then advanced over the guide wire into proper position. The guide wire was removed and discarded. The ports were aspirated, which showed good blood return, and then carefully flushed with normal saline. The catheter was stabilized and sutured to the skin with 2-0 silk at two anchor points. A sterile op-site was placed over the catheter and biopatch. The patient tolerated the procedure without any hemodynamic compromise. Estimated blood loss: 5 ml Post-procedure chest x-ray: Shows proper positioning of the catheter for use. NEHAL COOPER MD 09/30/24 1746: Date of Service: Sep 30, 2024 Billing Provider: NEHAL COOPER MD Common Visit Codes: PROCEDURE ONLY Procedure Codes: [id number] NON-TUNNEL CV CATH MERRY GARVIN RESDIBRITTAYN Sep 30, 2024 06:12 NEHAL COOPER MD Sep 30, 2024 17:46
[2024-09-30] MEDS: SODIUM CHLORIDE 0.9% 1,000 ML IV ONE (06:36)
--- NOTE | 2024-09-30 06:39 | ECG ---
[facility] Test Date: 2024-09-29 Test Time: 19:42:31 Pat Name: AILIN JORGENSEN Department: ED Room: 0232T Gender: F Hand Ii Thermal Cutter: TAMY : 1945 Requested By: DALLAS FABIAN Order Number: [id number] Reading MD: Derek Roca Measurements Intervals [place] Rate: 122 P: 74 WY: 141 QRS: 50 QRSD: 85 T: 74 QT: 300 QTc: 428 Interpretive Statements Sinus tachycardia Low voltage, extremity and precordial leads Electronically Signed On 10-03-2024 18:49:20 PDT by Derek Roca Please click the below link to view image of tracing.
[2024-09-30] MEDS: CEFEPIME 1GM/ 50ML 50 ML IV ONE (06:40)
[2024-09-30 06:52] LABS: Amphetamine Screen, Urine Neg (NEGATIVE); Barbiturate Scree,Urine Neg (NEGATIVE); Benzodiazephine Screen, Urine Neg (NEGATIVE); Cannabinoid Screen, Urine Neg (NEGATIVE); Cocaine Screen, Urine Neg (NEGATIVE); Opiate Scree,Urine Neg (NEGATIVE); Phencyclidine Screen, Urine Neg (NEGATIVE)
--- NOTE | 2024-09-30 08:26 | DVH ---
Bilateral lower extremity venous duplex Clinical History: Bilateral leg swelling Comparison: None Technique: Duplex Doppler evaluation of the deep venous systems of both lower extremities from the common femora l veins to the popliteal veins including color Doppler and spectral/pulsed waveform analysis was perf ormed. Findings: Thrombus from bilateral common femoral vein to posterior tibial vein Impression: Bilateral DVT from the common femoral vein through the posterior tibial vein
[2024-09-30] MEDS: SODIUM CHLORIDE 0.9% 1,000 ML IV SCH (08:28)
[2024-09-30] MEDS: LIDOCAINE 2%HCL (LOCAL ANESTH.) INJ 10ml MDV ONE ×2 (09:43→18:10)
--- NOTE | 2024-09-30 09:43 | DVHPNRES ---
Progress Note Date Seen: Sep 30, 2024 Resident Creating Document: NICKOLAS ZAPATA RESIDENT Medical Necessity Reason Pt with a Central, PICC or Fol: Yes The following are medically ne: Central Line, Glynn Catheter (RN,) Subjective Review of Systems HPI-Patient is 79 years old female with past medical history of hypertension, rheumatoid arthritis on methotrexate, history of upper GI bleeding due to peptic ulcer disease due to ibuprofen, urinary incontinence was brought in by the EMS with the hospital due to generalized weakness and declined functional status. Provider gathered information from patient's son Paulino, and patient. As per son patient has been feeling sick for last 1 month when she had fever, cough and congestion flu-like symptoms and that got better within 2 weeks. But last 1 week patients clinical condition was getting worse, patient was less energetic with a poor appetite, patient was less interactive with the son over the phone. As per patient who spoke to patient's roommate that she was not really getting out of the bed or chair the ambulate. He was feeling tired, fatigued, decreased appetite, not willing to talk or engage in conversation with the son lately. Son feel like patient was elevated confused lately but before she was alert and oriented x4. So son drove over from [address] to check on her and found her lying on the floor on feces and decided to call EMS. Patient was also confused at home where she lives with a roommate. As per son patient was admitted at [facility] in 2018 due to bleeding peptic ulcer and had 4 units of blood transfusion with the 4 units of plasma. On arrival patient was found hypotensive with altered mental status, confused. Blood pressure was as low as 86/ 43, chronic up to 141, tachypneic with a respiration 24, patient is 98.3. Lab workup revealed pancytopenia with leukopenia WBC 3.3, severe anemia with a hemoglobin 4.3, thrombocytopenia with platelets 15, MCV elevated 107.3, elevated RDW 28.9, hyponatremia with a sodium 132, potassium 4.3, increased anion gap 18, BUN 31, serum creatinine 0.71 hyperglycemia with blood sugar 278, lactic acidosis with lactic acid 10.1, calcium 8.8, magnesium 1.9, with a serum total bilirubin 2.4, AST 11, ALT 11, phosphatase 80, ammonia 31, creatinine kinase 21, INR 0.26, mildly elevated elevated troponin I 39, albumin 3.2, TSH 0.97, HGB 10.66. Stool occult blood test 1st sample negative. UDS negative, urinalysis suggestive for UTI with uterine, leukocyte esterase 3+, WBC 482, bacteria many, blood 1+.. Patient tested negative for COVID-19 and influenza type A and B. CXR suspected right lower lung opacity, CT abdomen and pelvis revealed-Trace bilateral pleural effusion with bibasilar opacities. More nodular opacity in the right lower lobe may represent focal infectious process or round atelectasis. Prominent gallbladder with mild pericholecystic fluid, nonspecific, correlation with clinical symptoms and possible ultrasound is recommended. 3. Nonspecific colonic wall thickening may represent colitis versus nondistention. 4. 1.1 cm calculus in the left renal pelvis with mildly prominent left renal collecting system.The uterus is retroverted live multiple fibroids some of which are calcified, CT head -No acute intracranial abnormality. Doppler study of the bilateral lower extremity revealed thrombus from bilateral common femoral vein to posterior tibial vein. Workup revealed iron 160, TIBC 179, % saturation 89.4, ferritin 1392, BNP 190, vitamin B12 261, vitamin D25 35.7, folic acid 109, TSH 2.96. UDS negative, Past medical history: Hypertension, upper GI bleed secondary to peptic ulcer due to ibuprofen abuse in 2018, rheumatoid arthritis currently on methotrexate, urinary incontinence. Surgical history: EGD and colonoscopy which showed no malignancy per patient (in 2018), bilateral knee repair and bilateral hip replacement, has rods in the femur bilaterally. Family history: Unknown (patient is adopted) Social history: She lives with a roommate for the past six months who is taking care of her. She drinks one my cards eliminate per day. Denies current tobacco, alcohol and other drug abuse Allergies: Denies Home medication: Methotrexate, folic acid and lidocaine (unsure why she takes the lidocaine) Cardiovascular- deny acute chest pain or shortness of breath or cough or palpitation Respiratory denies cough or short of breath or wheezing Gastrointestinal- denies any rectal bleeding, nausea or vomiting Musculoskeletal-denies acute joint swelling or tenderness or redness Neurological- denies acute dysarthria, dysphagia, change in vision Psychiatry- denies depression or SI or HI Skin- denies acute rash or purpura Patient was seen today for clinical evaluation. Labs and chart reviewed, Patient is awake alert but with some confusion. On auscultation bilateral lung crackles+, there is skin erythema and redness around genitalia, inner thigh, in the groin area, on the back of the thigh and also in the sacral area Left lower extremity redness, edematous swollen tender to touch Patient had 2 units of blood transfusion so far in the morning Patient had bone marrow aspiration done today Patient is on Levophed Pending echo 2D report Post transfusion blood revealed WBC 3.5, hemoglobin 4.3> 7.4 platelet 12, leukocyte 2.89, Objective vital signs Vital Sign Date Time Temp Pulse Resp B/P (MAP) Pulse Ox O2 Delivery O2 Flow Rate FiO2 09/30/24 08:15 89 20 112/63 (79) 100 09/30/24 08:00 97.7 97.7 09/29/24 22:30 Room Air* 0 21 Total Intake and Output 09/29/24 09/29/24 09/30/24 15:00 23:00 07:00 Intake Total 3400 ml Output Total 0 ml Balance 3400 ml medications Current Medications Medications Dose Ordered Sig/Jovon Route Start Time Stop Time Status Last Admin Dose Admin Norepinephrine Bitartrate 250 ml @ 3.75 mls/hr Q24H IV 09/30/24 04:00 09/30/24 05:30 3.75 MLS/HR Morphine Sulfate 2 mg Q4HPRN PRN IV 09/30/24 05:45 Vancomycin HCl 0 ml @ 0 mls/hr UD IV 09/30/24 05:45 UNV Cefepime HCl 50 ml @ 12.5 mls/hr Q12HR IV 09/30/24 22:00 Sodium Chloride 1,000 ml @ 100 mls/hr Q10H IV 09/30/24 05:45 09/30/24 08:28 100 MLS/HR Pantoprazole Sodium 40 mg BID IV 09/30/24 22:00 Examination General examination- awake, mildly confused, conversant HEENT- PEERLA, no acute nasal discharge Cardiovascular- S1-S2 audible, rate and rhythm regular, no murmur Respiratory-bilateral lung crackles++ Gastrointestinal-abdominal wall tenderness+, bowel sound+. Nondistended Musculoskeletal- bilateral hand deformity likely complication from rheumatoid arthritis Extremity- red, bilateral lower extremity swollen+, edematous+, left lower leg red, edematous, tender, deformed bilateral hand likely from completion of rheumatoid arthritis Genitalia-there is redness and excoriation of the skin around genitalia, inner thigh bilaterally, on the sacrum, on the back of the thigh, Neurological- cranial nerves intact, no acute dysarthria or dysphagia Psychiatry- denies depression or SI or HI Skin- rash erythema with a skin excoriation around genitalia, in her high, in the back of the thigh and on the sacrum laboratory and microbiology Laboratory Tests 09/29/24 22:00 Test 09/29/24 22:00 Range/Units Serum Glucose 278 H 74-106 mg/dL Problem List/Assessment/Plan Problem List/Assessment/Plan Assessment and plan #Central nervous system -Acute metabolic encephalopathy likely due to UTI with Sepsis / pneumonia Gram- positive versus Gram-negative -continue current antibiotic meropenem and vancomycin as per pharmacy protocol -avoid dehydration -monitor mental status, vitals, intake output chart #Cardiovascular Suspected acute pulmonary edema likely due to anemic heart failure/CHF History of hypertension Septic shock #B/L Leg swelling Likely due to DVT/CHF -continue IV fluid as prescribed -continue Levophed with titration -monitor vitals -maintain intake output chart #Respiratory system Suspected pneumonia Gram-positive versus Gram-negative Trace bilateral pleural effusion --continue current antibiotic meropenem and vancomycin as per pharmacy protocol -nebulization as required -monitor vitals -pending blood culture, urine culture, sputum culture - #Gastrointestinal -Colitis -history of bleeding peptic ulcer disease likely due to ibuprofen -history of endoscopy and colonoscopy in 2018 after patient had GI bleeding with severe anemia Elevated bilirubin pericholecystic fluid -continue IV fluid -continue IV antibiotic #Genitourinary -suspected UTI with sepsis Dehydration Left renal calculus 1.1 cm, retroverted Uterus with multiple fibroids some of which are calcified. -continue current IV antibiotic -pending blood culture, urine culture, sputum culture #Infectious disease -Septic shock likely due to UTI with sepsis/?pneumonia/cellulitis of the left lower extremity -cellulitis of the left lower extremity -suspected pneumonia Gram-positive versus Gram-negative -pending blood culture, urine culture, wound culture -continue current IV antibiotic #Hematology Pancytopenia-status post 2 units blood transfusion History of GI bleeding History of bleeding peptic ulcer disease Severe anemia Leukopenia Thrombocytopenia Reticulocytosis Suspected immunosuppression from methotrexate Bilateral DVT-patient with severe anemia, --order in place for inferior vena caval filter -ordered hematology consult -status post bone marrow aspiration, pending report -status post 2 units blood transfusion -monitor CBC, # Rheumatology -history of rheumatoid arthritis with bilateral hand deformity/contracture -monitor clinically # Metabolic/ Endocrine -hypokalemia replenished -prediabetes, HGB A1c 6.3 -insulin sliding scale Mild hyponatremia Lactic acidosis-resolved -continue current management #Skin or elementary Skin excoriation and erythema around genitalia/inner thigh bilaterally, sacrum area and back of the thigh Patient with septic shock, pancytopenia, had 2 units of blood transfusion, on Levophed. Patient has bilateral lower extremity DVT need urgent care. On IV fluid and IV antibiotic. Patient is clinically unstable to be transferred at this time. DVT prophylaxis pantoprazole DVT prophylaxis- Drips-on Levophed Lines-left internal jugular vein central line Glynn's catheter please Central line in the right internal jugular vei established 09/30/2024 On Glynn's catheter since admission On Levophed Antibiotic cefepime and vancomycin as per pharmacy protocol Goals of care/advance care planning Code status ; discussed with the patient >15 minutes PUD prophylaxis: Pantoprazole DVT prophylaxis: Patient was severe anemia with thrombocytopenia, no antiplatelet or blood thinner at this moment Plan discussed with Dr. Jewell , nursing staff, patient, Son Total time spent on patient evaluation, chart review, assessment and plan, total Critical time spent 84 minutes Plan discussed with: Patient, Son CC Plasma Assessment Blood Product Administration S: 0530 Date of Service: Sep 30, 2024 Billing Provider: NOAM JEWELL MD Common Visit Codes: 29773-AOVVLVVK CARE 30-74 MIN, 64951-[id number] CARE-EACH +30MIN NICKOLAS ZAPATA RESIDENT Sep 30, 2024 09:43 NOAM JEWELL MD Oct 01, 2024 12:05
[2024-09-30] MEDS: fentaNYL CITRATE 100 MCG/2 ML VL IV ONE (10:45)
[2024-09-30] MEDS: MIDAZOLAM HCL 2MG/2ML 2ml VIAL (1mg/ml) IV ONE (10:45)
[2024-09-30 11:01] LABS: Hematocrit 21.4 % (36.0-46.0); Hemoglobin 7.4 g/dL (12.2-16.2); Mean Corpuscular Hemoglobin 33.5 pg (28.0-32.0); Mean Corpuscular Hgb Conc. 34.8 g/dL (32.0-36.0); Mean Corpuscular Volume 96.3 fL (80.0-100.0); Red Blood Cells 2.22 10^6/uL (4.0-5.20); White Blood Cell 3.5 10^3/uL (4.4-10.8)
[2024-09-30 11:06] LABS: Basophils % (manual) 0 (0.0-2.0); Eosinophils % (manual) 0 (0-7); Metamyelocytes % 0; Myelocytes % 0; Promyelocytes % 0; Reactive Lymphocytes 0
[2024-09-30 11:11] LABS: Alkaline Phosphatase 63 U/L (46-116); Anion Gap 10 (5-15); BUN/Creatinine Ratio 47.8 (10.0-20.0); Blood Urea Nitrogen 22 mg/dL (9-23); Cholesterol 73 mg/dL (< 200); LDL Cholesterol 32 mg/dL (< 100); Magnesium 1.7 mg/dL (1.6-2.6); Sodium 139 mmol/L (136-145); Triglycerides 82 mg/dL (< 150)
[2024-09-30 11:26] LABS: % Iron Saturation 89.4 % (15-50)
[2024-09-30 11:31] LABS: Alanine Aminotransferase < 9 U/L (7-40); Albumin 2.5 g/dL (3.2-4.8); Aspartate Aminotransferase 13 U/L (13-40); Bilirubin, Total 2.3 mg/dL (0.2-1.0); CRP High Sensitivity 9.86 mg/dL (<1.0); Calcium 7.8 mg/dL (8.7-10.4); Carbon Dioxide 19 mmol/L (20-31); Chloride 110 mmol/L (98-107); Ferritin 1392.6 ng/mL (10-291); Folate (Folic Acid) 1.03 ng/mL (>5.38); Glucose 176 mg/dL (74-106); HDL Cholesterol 21 mg/dL (40-59); Phosphorus 2.4 mg/dL (2.4-5.1); Potassium 3.3 mmol/L (3.5-5.1); Total Protein 4.1 g/dL (5.7-8.2)
[2024-09-30 11:33] LABS: Band Neutrophils % (manual) 2; Blast Cells 2; Lymphocytes % (manual) 16 (10.0-50.0); Monocytes % (manual) 2 (0-12); Platelet Estimate Markedly Decreased
[2024-09-30 11:38] LABS: Platelet Count (auto) 12 10^3/uL (140-450)
[2024-09-30 11:53] LABS: Wright Stain Ready for Review
--- NOTE | 2024-09-30 12:19 | DVH ---
CT PELVIS WO CONTRAST HISTORY: BONE MARROW BX COMPARISON: None PROCEDURE: Informed consent and time-out was performed before the procedure. The left posterior pelv ic bone was marked, sterilized, draped, and locally anesthetized using approximately 5 ml of 1% lidoc sanjuana. Axial CT images were used for localization. A 11 gauge Recognia Bone Biopsy kit was used to ta ke 14 mL aspirate and 1 core. The biopsy needle was then removed. No immediate complications noted. FINDINGS: Axial CT images demonstrates biopsy needle within the left posterior pelvic bone. IMPRESSION: Successful CT-guided biopsy of the left posterior pelvic bone.
--- NOTE | 2024-09-30 12:20 | DVH ---
PROCEDURE: CT GUIDED BIOPSY OF HISTORY: BONE MARROW BX COMPARISON: None PROCEDURE: Informed consent and time-out was performed before the procedure. The left posterior pelvi c bone was marked, sterilized, draped, and locally anesthetized using approximately 5 ml of 1% lidoca ine. Axial CT images were used for localization. A 11 gauge jigl Bone Biopsy kit was used to radu e 14 mL aspirate and 1 core. The biopsy needle was then removed. No immediate complications noted. FINDINGS: Axial CT images demonstrates biopsy needle within the left posterior pelvic bone. IMPRESSION: Successful CT-guided biopsy of the left posterior pelvic bone.
[2024-09-30] MEDS: VANCOMYCIN 500mg/100mL 100 ML IV SCH (13:13)
[2024-09-30] MEDS: InsuLIN REG 1unit/0.01ml Soln (100units/ml) SC ONE (13:15)
[2024-09-30] MEDS: ACCU-CHEK COMFORT CURVE STRIP VI ONE (13:15)
[2024-09-30] MEDS: DEXTROSE (50%) 50ML SYRG IV ONE (13:26)
[2024-09-30] MEDS ORDERED: DEXTROSE (50%) 50ML SYRG IV PRN (14:00)
--- NOTE | 2024-09-30 15:19 | ECG ---
[facility] Test Date: 2024-09-29 Test Time: 22:12:20 Pat Name: AILIN JORGENSEN Department: ED Room: 0232T Gender: F Automation Analyst: TAMY : 1945 Requested By: MIKEY HAIRSTON Order Number: [id number] Reading MD: Derek Roca Measurements Intervals [place] Rate: 141 P: 74 DC: 144 QRS: 26 QRSD: 103 T: 40 QT: 269 QTc: 412 Interpretive Statements Sinus tachycardia Low voltage, extremity and precordial leads Abnormal inferior Q waves Electronically Signed On 10-03-2024 18:49:54 PDT by Derek Roca Please click the below link to view image of tracing.
[2024-09-30] MEDS ORDERED: ATOR20TA50 (15:49)
[2024-09-30] MEDS ORDERED: METH2.5T62 (15:49)
[2024-09-30] MEDS ORDERED: TROS20TA3 (15:49)
[2024-09-30] MEDS ORDERED: LISI-275 (15:49)
[2024-09-30] MEDS: POTASSIUM EFFERVESENT TAB 25 MEQ PO ONE (17:33)
[2024-09-30] MEDS: MEROPENEM 1GM IVPB 50 ML IV ONE (17:33)
[2024-09-30] MEDS: fentaNYL CITRATE 100 MCG/2 ML VL ONE (17:59)
[2024-09-30] MEDS: MIDAZOLAM HCL 2MG/2ML 2ml VIAL (1mg/ml) ONE (17:59)
[2024-09-30] MEDS: LIDOCAINE 2%HCL (LOCAL ANESTH.) INJ 20ML MDV ONE (17:59)
[2024-09-30] MEDS: ACCU-CHEK COMFORT CURVE STRIP VI SCH (18:04)
[2024-09-30] MEDS: InsuLIN REG 1unit/0.01ml Soln (100units/ml) SC SCH (18:10)
[2024-09-30] MEDS: IODIXANOL 320MG/ML 100ML BTL IV ONE (18:11)
[2024-09-30] MEDS: FOLIC ACID 1 MG in D5W 5% 50 ML INJ ONE (18:27)
--- NOTE | 2024-09-30 21:25 | DVHOP2 ---
Operative Report - 2 Report Details Date: 09/30/24 Preop Diagnosis: Bilateral DVT, severe thrombocytopenia, Postop Diagnosis: placement of left placement of left internal jugular catheter /central line Surgeon: Cheryl Roca MD Anesthesiologist: Conscious sedation Anesthesia: Mac, Local ( conscious sedation was ordered by me. The patient was monitored throughout the entirety of the procedure) Implant: Dulce vena cava filter. Consent: The patient was informed of the risks and benefits of the procedure. These include but are not limited to complications of anesthesia, postoperative infection, incomplete relief of symptoms, recurrence of symptoms, damage to blood vessels, nerves and tendons, deep venous thrombosis, pulmonary embolism and possible need for repeat surgery in the future. Complications: No complications Estimated Blood Loss: 5 cc Findings: Successful placement of vena cava filter Indications for Surgery: Bilateral DVT Name of Procedure Performed Placement of vena cava filter Procedure Details Procedure Details: Prior full informed consent obtained the patient was prepped and draped in usual fashion taken to the laborer adjustable steel joist in the neck was prepped and draped in usual fashion. We placed a central line under ultrasound and fluoroscopic guidance into the left internal jugular vein. We sutured it with 3-0 silk. We then removed the internal jugular vein catheter from the right side and retained the wire. We then placed a long eight Malian sheath into the internal jugular vein and placed a Hudspeth vena cava filter after obtaining a venogram to delineate the origin of the renal veins. The retrieval tip of the Dulce filter was placed below the lowest renal vein. At approximately L3-L4. The sheath was then removed and pressure was held until hemostasis was obtained. Patient tolerated the procedure well there were no complications. Condition Guarded Disposition Still a Patient Date of Service: Sep 30, 2024 Billing Provider: CHERYL ROCA Sr., MD Cardiology Common Codes: 51230-[id number] INP/OBS CARE (High) ( vena cava filter placement. Placement of left internal jugular venous central line catheter. Venogram.) CHERYL ROCA Sr., MD Sep 30, 2024 21:25
[2024-09-30] MEDS ORDERED: CEFEPIME 1GM/ 50ML 50 ML IV SCH (22:00)
[2024-09-30] MEDS: PANTOPRAZOLE 40 MG/10 ML VIAL INJ IV SCH (22:25)
[2024-09-30] MEDS: MEROPENEM 1GM IVPB 50 ML IV SCH (22:33)
[2024-10-01] VITALS (53 sets, daily range): BP systolic 93–129; BP diastolic 49–65; PULSE 84–102; RESP 16–99; TEMP 97.5–100.3; O2SAT 93–100
[2024-10-01 05:47] LABS: Alanine Aminotransferase 11 U/L (7-40); Alkaline Phosphatase 54 U/L (46-116); Anion Gap 8 (5-15); Aspartate Aminotransferase 16 U/L (13-40); BUN/Creatinine Ratio 47.5 (10.0-20.0); Blood Urea Nitrogen 19 mg/dL (9-23); Carbon Dioxide 21 mmol/L (20-31); Glucose 100 mg/dL (74-106); Magnesium 1.7 mg/dL (1.6-2.6); Sodium 139 mmol/L (136-145)
--- NOTE | 2024-10-01 05:47 | DVH ---
EXAM: XR Chest, 1 View CLINICAL INDICATION: PNA/CHF TECHNIQUE: Frontal view of the chest. COMPARISON: XY CHEST XRAY 1 VIEW on DOS: 09/30/24, XY CHEST PORTABLE on DOS: 09/29/24 FINDINGS: LUNGS AND PLEURAL SPACES: Mild pulmonary congestion. No consolidation. No pneumothorax. HEART: Unremarkable. No cardiomegaly. MEDIASTINUM: Unremarkable. Normal mediastinal contour. BONES/JOINTS: Unremarkable. No acute fracture. TUBES, LINES AND DEVICES: Left internal jugular central venous catheter tip in the superior vena ca va. OTHER FINDINGS: . IMPRESSION: Mild pulmonary congestion.
[2024-10-01 05:48] LABS: Albumin 2.4 g/dL (3.2-4.8); Bilirubin, Total 1.2 mg/dL (0.2-1.0); Calcium 7.7 mg/dL (8.7-10.4); Chloride 110 mmol/L (98-107); Potassium 2.9 mmol/L (3.5-5.1); Total Protein 3.9 g/dL (5.7-8.2)
[2024-10-01] MEDS: MAGNESIUM SULFATE 1GM/100ML 100 ML IV SCH (06:40)
[2024-10-01] MEDS: POTASSIUM EFFERVESENT TAB 25 MEQ PO ONE (06:40)
[2024-10-01 07:40] LABS: Hematocrit 18.6 % (36.0-46.0); Mean Corpuscular Volume 95.6 fL (80.0-100.0); Platelet Count (auto) 39 10^3/uL (140-450); White Blood Cell 2.7 10^3/uL (4.4-10.8)
[2024-10-01 07:42] LABS: Mean Corpuscular Hgb Conc. 35.6 g/dL (32.0-36.0); Red Blood Cells 1.95 10^6/uL (4.0-5.20); Red Cell Distribution Width 15.4 % (11.8-14.3)
[2024-10-01 07:48] LABS: Hemoglobin 6.6 g/dL (12.2-16.2)
[2024-10-01 07:49] LABS: Basophils % (manual) 0 (0.0-2.0); Blast Cells 0; Metamyelocytes % 0; Myelocytes % 0; Promyelocytes % 0; Reactive Lymphocytes 0
[2024-10-01] MEDS: SODIUM CHLORIDE 0.9% 500 ML IV ONE (09:00)
--- NOTE | 2024-10-01 09:30 | DVHPNRES ---
Progress Note Date Seen: Oct 01, 2024 Resident Creating Document: NICKOLAS ZAPATA RESIDENT Medical Necessity Reason Pt with a Central, PICC or Fol: Yes The following are medically ne: Central Line, Glynn Catheter (RN,) Subjective Review of Systems HPI-Patient is 79 years old female with past medical history of hypertension, rheumatoid arthritis on methotrexate, history of upper GI bleeding due to peptic ulcer disease due to ibuprofen, urinary incontinence was brought in by the EMS with the hospital due to generalized weakness and declined functional status. Provider gathered information from patient's son Paulino, and patient. As per son patient has been feeling sick for last 1 month when she had fever, cough and congestion flu-like symptoms and that got better within 2 weeks. But last 1 week patients clinical condition was getting worse, patient was less energetic with a poor appetite, patient was less interactive with the son over the phone. As per patient who spoke to patient's roommate that she was not really getting out of the bed or chair the ambulate. He was feeling tired, fatigued, decreased appetite, not willing to talk or engage in conversation with the son lately. Son feel like patient was elevated confused lately but before she was alert and oriented x4. So son drove over from [address] to check on her and found her lying on the floor on feces and decided to call EMS. Patient was also confused at home where she lives with a roommate. As per son patient was admitted at [facility] in 2018 due to bleeding peptic ulcer and had 4 units of blood transfusion with the 4 units of plasma. On arrival patient was found hypotensive with altered mental status, confused. Blood pressure was as low as 86/ 43, chronic up to 141, tachypneic with a respiration 24, patient is 98.3. Lab workup revealed pancytopenia with leukopenia WBC 3.3, severe anemia with a hemoglobin 4.3, thrombocytopenia with platelets 15, MCV elevated 107.3, elevated RDW 28.9, hyponatremia with a sodium 132, potassium 4.3, increased anion gap 18, BUN 31, serum creatinine 0.71 hyperglycemia with blood sugar 278, lactic acidosis with lactic acid 10.1, calcium 8.8, magnesium 1.9, with a serum total bilirubin 2.4, AST 11, ALT 11, phosphatase 80, ammonia 31, creatinine kinase 21, INR 0.26, mildly elevated elevated troponin I 39, albumin 3.2, TSH 0.97, HGB 10.66. Stool occult blood test 1st sample negative. UDS negative, urinalysis suggestive for UTI with uterine, leukocyte esterase 3+, WBC 482, bacteria many, blood 1+.. Patient tested negative for COVID-19 and influenza type A and B. CXR suspected right lower lung opacity, CT abdomen and pelvis revealed-Trace bilateral pleural effusion with bibasilar opacities. More nodular opacity in the right lower lobe may represent focal infectious process or round atelectasis. Prominent gallbladder with mild pericholecystic fluid, nonspecific, correlation with clinical symptoms and possible ultrasound is recommended. 3. Nonspecific colonic wall thickening may represent colitis versus nondistention. 4. 1.1 cm calculus in the left renal pelvis with mildly prominent left renal collecting system.The uterus is retroverted live multiple fibroids some of which are calcified, CT head -No acute intracranial abnormality. Doppler study of the bilateral lower extremity revealed thrombus from bilateral common femoral vein to posterior tibial vein. Workup revealed iron 160, TIBC 179, % saturation 89.4, ferritin 1392, BNP 190, vitamin B12 261, vitamin D25 35.7, folic acid 109, TSH 2.96. UDS negative, Past medical history: Hypertension, upper GI bleed secondary to peptic ulcer due to ibuprofen abuse in 2018, rheumatoid arthritis currently on methotrexate, urinary incontinence. Surgical history: EGD and colonoscopy which showed no malignancy per patient (in 2018), bilateral knee repair and bilateral hip replacement, has rods in the femur bilaterally. Family history: Unknown (patient is adopted) Social history: She lives with a roommate for the past six months who is taking care of her. She drinks one my cards eliminate per day. Denies current tobacco, alcohol and other drug abuse Allergies: Denies Home medication: Methotrexate, folic acid and lidocaine (unsure why she takes the lidocaine) Patient was seen today for clinical evaluation. Labs and chart reviewed, Patient reported she was not compliant with her medication last couple of days before she came to the hospital Patient had placement of inferior vena caval filter on 09/30/2024 due to bilateral lower extremity DVT with severe thrombocytopenia, pancytopenia Lab workup trend revealed WBC 3.3> 3.5> 2.7, hemoglobin 4.3> 7.4> 6.6, platelet 15> 12> 39, sodium 132>> 139 139, potassium 4.3?> 3.3> 2.9, bilirubin 2.4>> 2.3 1.2 Patient still leukopenic, anemic and thrombocytopenic Blood cultureno growth so far no growth Patient is more awake and alert today 3 units of blood transfusion, 2 units of platelet concentrate transfusion so far CXR today loose like mild pulmonary congestion/atelectasis Patient was seen by hemato oncology, Dr. Funes, recommendation reviewed and appreciated Decreased pain is from 40 mg IV b.i.d. to 40 mg IV daily Provider spoke to patient's son Paulino in [phone], discussed patient's current medical condition, plan of care and answered his questions. Objective vital signs Vital Sign Date Time Temp Pulse Resp B/P (MAP) Pulse Ox O2 Delivery O2 Flow Rate FiO2 10/01/24 06:00 17 99 Room Air* 0 21 10/01/24 06:00 93 10/01/24 06:00 104/58 (73) 10/01/24 04:15 98.7 98.7 Total Intake and Output 09/30/24 09/30/24 10/01/24 15:00 23:00 07:00 Intake Total 935.0 ml 1103.75 ml 1817 ml Output Total 1100 ml 525 ml Balance 935.0 ml 3.75 ml 1292 ml medications Current Medications Medications Dose Ordered Sig/Jovon Route Start Time Stop Time Status Last Admin Dose Admin Norepinephrine Bitartrate 250 ml @ 3.75 mls/hr Q24H IV 09/30/24 04:00 09/30/24 05:30 3.75 MLS/HR Morphine Sulfate 2 mg Q4HPRN PRN IV 09/30/24 05:45 Vancomycin HCl 0 ml @ 0 mls/hr UD IV 09/30/24 05:45 Sodium Chloride 1,000 ml @ 100 mls/hr Q10H IV 09/30/24 05:45 09/30/24 15:46 100 MLS/HR Pantoprazole Sodium 40 mg BID IV 09/30/24 22:00 09/30/24 22:25 40 MG Vancomycin HCl 100 ml @ 200 mls/hr Q12H IV 09/30/24 12:00 09/30/24 23:50 200 MLS/HR Diagnostic Test (Pha) 1 strip Q6HR 09/30/24 18:00 10/01/24 05:46 1 STRIP Insulin Human Regular Q6HR SC 09/30/24 18:00 09/30/24 18:10 2 UNITS Dextrose 50 ml UD PRN IV 09/30/24 14:00 Meropenem 50 ml @ 17 mls/hr Q12HR IV 09/30/24 22:00 09/30/24 22:33 17 MLS/HR Folic Acid 1 mg/ Dextrose 50.2 ml @ 200.8 mls/ hr DAILY INJ 10/01/24 10:00 Examination General examination- awake, mildly confused, conversant HEENT- PEERLA, no acute nasal discharge Cardiovascular- S1-S2 audible, rate and rhythm regular, no murmur Respiratory-bilateral lung crackles++ Gastrointestinal-abdominal wall tenderness+, bowel sound+. Nondistended Musculoskeletal- bilateral hand deformity likely complication from rheumatoid arthritis Extremity- red, bilateral lower extremity swollen+, edematous+, left lower leg red, edematous, tender, deformed bilateral hand likely from completion of rheumatoid arthritis Genitalia-there is redness and excoriation of the skin around genitalia, inner thigh bilaterally, on the sacrum, on the back of the thigh, Neurological- cranial nerves intact, no acute dysarthria or dysphagia Psychiatry- denies depression or SI or HI Skin- rash erythema with a skin excoriation around genitalia, in her high, in the back of the thigh and on the sacrum laboratory and microbiology Laboratory Tests 10/01/24 06:43 10/01/24 04:45 Test 10/01/24 04:45 Range/Units Serum Glucose 100 74-106 mg/dL Microbiology Date/Time Source Procedure Growth Status 09/29/24 22:00 Voided Urine Urine Culture - Preliminary Resulted 09/29/24 22:00 Blood Blood Culture - Preliminary NO GROWTH AFTER 24 HOURS OF INCUBATION. Resulted Problem List/Assessment/Plan Problem List/Assessment/Plan Assessment and plan #Central nervous system -Acute metabolic encephalopathy likely due to UTI with Sepsis / pneumonia Gram- positive versus Gram-negative -continue current antibiotic meropenem and vancomycin as per pharmacy protocol -avoid dehydration -monitor mental status, vitals, intake output chart #Cardiovascular Suspected acute pulmonary edema likely due to anemic heart failure/CHF History of hypertension septic shock #B/L Leg swelling Likely due to DVT/CHF -continue IV fluid as prescribed -discontinued Levophed -monitor vitals -maintain intake output chart #Respiratory system Suspected pneumonia Gram-positive versus Gram-negative Trace bilateral pleural effusion --continue current antibiotic meropenem and vancomycin as per pharmacy protocol -nebulization as required -monitor vitals -pending blood culture, urine culture, sputum culture - #Gastrointestinal -Colitis -history of bleeding peptic ulcer disease likely due to ibuprofen -history of endoscopy and colonoscopy in 2018 after patient had GI bleeding with severe anemia Elevated bilirubin pericholecystic fluid -continue IV fluid -continue IV antibiotic #Genitourinary -suspected UTI with sepsis Dehydration Left renal calculus 1.1 cm, retroverted Uterus with multiple fibroids some of which are calcified. -continue current IV antibiotic -pending blood culture, urine culture, sputum culture #Infectious disease -Septic shock likely due to UTI with sepsis/pneumonia/cellulitis of the left lower extremity -cellulitis of the left lower extremity -suspected pneumonia Gram-positive versus Gram-negative -pending blood culture, urine culture, wound culture -continue current IV antibiotic #Hematology Pancytopenia-status post blood transfusion History of GI bleeding History of bleeding peptic ulcer disease Severe anemia Leukopenia Thrombocytopenia Reticulocytosis Suspected immunosuppression from methotrexate Bilateral DVT-patient with severe anemia, --order in place for inferior vena caval filter -10/01/2024-patient was seen by Dr. Funes, recommendation reviewed and appreciated -status post bone marrow aspiration, pending report -status post blood transfusion -monitor CBC, # Rheumatology -history of rheumatoid arthritis with bilateral hand deformity/contracture -monitor clinically # Metabolic/ Endocrine -hypokalemia replenished -prediabetes, HGB A1c 6.3 -insulin sliding scale Mild hyponatremia Lactic acidosis-resolved -continue current management #Skin or elementary Skin excoriation and erythema around genitalia/inner thigh bilaterally, sacrum area and back of the thigh Patient with septic shock, pancytopenia, s/p blood transfusion. needed another unit of blood transfusion today. Patient has bilateral lower extremity DVT, status post IV filter . On IV fluid and IV antibiotic. Patient is clinically unstable to be transferred at this time. DVT prophylaxis pantoprazole DVT prophylaxis- Drips-on Levophed Lines-left internal jugular vein central line Glynn's catheter please Central line in the right internal jugular vei established 09/30/2024 On Glynn's catheter since admission Antibiotic Meropenem and vancomycin as per pharmacy protocol Goals of care/advance care planning Code status ; discussed with the patient >15 minutes PUD prophylaxis: Pantoprazole DVT prophylaxis: Patient was severe anemia with thrombocytopenia, no antiplatelet or blood thinner at this moment Plan discussed with Dr. Jewell , nursing staff, patient, Son Total time spent on patient evaluation, chart review, assessment and plan, total Critical time spent 84 minutes Plan discussed with: Patient (RN), Son, Other (RN) My Orders My Orders Orders - NICKOLAS ZAPATA Procedure Category Date Status Time * Swallow Request ST 09/30/24 Transmitted 10:11 Rachel Direct W/Reflex LAB 09/30/24 In Process To Comp. 11:13 Mechanical Soft Diet DIET 09/30/24 Transmitted Lunch Glucose Blood PHA 09/30/24 In Process (Accu-Chek Comfort 18:00 Insulin R (Human) PHA 09/30/24 In Process (Insulin R) 18:00 Dextrose 50% Syringe PHA 09/30/24 In Process 14:00 Complete Blood Count LAB 10/01/24 In Process 04:00 Chest Portable XY 10/01/24 Resulted 04:00 Mrsa Screen [place] 09/30/24 In Process 21:54 * Wound Consult CONS 09/30/24 Transmitted Sodium Chloride 0.9% PHA 10/01/24 In Process 07:45 Manual Differential LAB 10/01/24 In Process 06:43 CC Plasma Assessment Blood Product Administration S: 0530 Date of Service: Oct 01, 2024 Billing Provider: NOAM JEWELL MD Common Visit Codes: 09633-[id number] CARE 30-74 MIN, 81782-TPORWACK CARE-EACH +30MIN NICKOLAS ZAPATA Oct 01, 2024 09:30 NOAM JEWELL MD Oct 03, 2024 16:45
--- NOTE | 2024-10-01 09:34 | DVHINCON2 ---
Date of service: Oct 01, 2024 Referring Physician Pancytopenia Reason for Consultation Dr Demetra Ragland History of Present Illness 79 years old female who is admitted in the [facility]. The patient has a history of hypertension, peptic ulcer disease and GI bleeding in 2018 with ibuprofen, history of rheumatoid arthritis And currently has been on methotrexate. She states that she takes the methotrexate on and she is not sure how many pills she has been taking. The patient had altered level of consciousness I am consulted for pancytopenia. On 09/29/2024 white count was 3.3 hemoglobin 4.3 MCV 107.3 platelets 15,000. She has been given 2 units of PRBCs and 2 units of platelets and today her white count is 2.7 hemoglobin 6.6 platelets are 39,000. No complaints of bleeding. She has some easy bruising. No complaints of fevers or night sweats. No headaches nausea vomiting Normal renal functions. Total protein 3.9 albumin 2.4, total bili 1.2 AST 16 ALT 11 alkaline phosphatase 54, B12 261, folic acid 1.03. Direct Jaycee is negative Stool guaiac is negative Venous Doppler showed thrombus from bilateral common femoral vein to the posterior tibial vein The patient has an IVC filter inserted now She had a bone marrow aspiration biopsy done yesterday and the report is pending CT of the abdomen pelvis with IV contrast showed trace bilateral pleural effusion. More nodular opacity in the right lower lobe may represent focal infectious process or round atelectasis Nonspecific colonic wall thickening may represent colitis. CX-ray showed mild pulmonary congestion She is treated with folic acid 1 mg daily meropenem Protonix vancomycin Past Medical History Rheumatoid arthritis Hypertension History of peptic ulcer disease 2017 Family History: Patient reports no known family medical history. Family History Adopted Social History No smoking or drinking or any alcohol or drugs Allergies: Coded Allergies: NO KNOWN ALLERGIES (Unverified , 01/19/12) Home Meds Reported Medications Lisinopril (Lisinopril) 5 Mg Tab, 1 DAILY 09/30/24 Trospium Chloride (Trospium Chloride) 20 Mg Tab 09/30/24 Atorvastatin Calcium (ATORVASTATIN CALCIUM) 20 Mg Tab, 1 DAILY 09/30/24 Methotrexate (Methotrexate Sodium) 2.5 Mg Tab, 8 09/30/24 Diltiazem Hcl (Cardizem) 30 Mg Tab 01/19/12 Discontinued Reported Medications Naproxen (Naprosyn) 250 Mg Tab 01/19/12 Current Medications Current Medications Medications (Trade) Dose Ordered Sig/Jovon Route PRN Reason Start Time Stop Time Status Last Admin Cefepime HCl 50 ml @ 12.5 mls/hr Q12HR IV 09/30/24 22:00 09/30/24 15:30 DC Pantoprazole Sodium (Protonix) 40 mg BID IV 09/30/24 22:00 09/30/24 22:25 Vancomycin HCl 100 ml @ 200 mls/hr Q12H IV 09/30/24 12:00 09/30/24 23:50 Diagnostic Test (Pha) (Accu-Chek Comfort Curve T) 1 strip Q6HR 09/30/24 18:00 10/01/24 05:46 Insulin Human Regular (InsuLIN R) Q6HR SC 09/30/24 18:00 09/30/24 18:10 Dextrose 50 ml UD PRN IV Blood Sugar LESS THAN 60 09/30/24 14:00 Meropenem 50 ml @ 17 mls/hr Q12HR IV 09/30/24 22:00 09/30/24 22:33 Folic Acid 1 mg/ Dextrose 50.2 ml @ 200.8 mls/ hr DAILY INJ 10/01/24 10:00 Magnesium Sulfate/ Dextrose 100 ml @ 100 mls/hr Q1HR IV 10/01/24 07:00 10/01/24 08:59 DC 10/01/24 08:25 Vital Signs Vital Signs Date Time Temp Pulse Resp B/P (MAP) Pulse Ox O2 Delivery O2 Flow Rate FiO2 10/01/24 06:00 17 99 Room Air* 0 21 10/01/24 06:00 93 10/01/24 06:00 104/58 (73) 10/01/24 04:15 98.7 98.7 Physical Exam GENERAL: The patient is a moderately built and nourished ,in no distress, sick looking female who is thin and not the best of the historian. She knows where she is. HEAD AND NECK: Unremarkable. No neck nodes or masses. Conjunctivae: Unremarkable for any mucosal hemorrhage or inflammation. Thyroid is nonpalpable. Throat is unremarkable. SPINE: No deformities or tenderness. CHEST: Chest wall, no tenderness. LUNGS: Clear. CARDIOVASCULAR: Regular sinus rhythm. No murmurs or gallops. ABDOMEN: No organomegaly, tenderness or ascites. Bowel sounds present. EXTREMITIES: Has flexion deformities on the hands. Swelling of both lower extremities and the left lower extremity shows erythema and is tender to touch LYMPHATICS: No significant lymphadenopathy. NEUROLOGIC: No focal neurological deficits. SKIN: Unremarkable for any petechiae, purpura, or ecchymosis. Psych: No abnormalities Available data reviewed Labs/Diagnostic Data Labs Test 10/01/24 06:43 10/01/24 05:26 10/01/24 04:45 09/30/24 10:02 Range/Units White Blood Count 2.7 L 4.4-10.8 10^3/uL Red Blood Count 1.95 L 4.0-5.20 10^6/uL Hemoglobin 6.6 *L 12.2-16.2 g/dL Hematocrit 18.6 #L 36.0-46.0 % Mean Corpuscular Volume 95.6 80.0-100.0 fL Mean Corpuscular Hemoglobin 34.0 H 28.0-32.0 pg Mean Corpuscular Hemoglobin Concent 35.6 32.0-36.0 g/dL Red Cell Distribution Width 15.4 H 11.8-14.3 % Platelet Count 39 L 140-450 10^3/uL Mean Platelet Volume 7.7 6.9-10.8 fL Neutrophils (%) (Auto) 37.0-80.0 % Lymphocytes (%) (Auto) 10.0-50.0 % Monocytes (%) (Auto) 0.0-12.0 % Basophils (%) (Auto) 0.0-2.0 % Neutrophils # (Auto) 1.6-8.6 10 ^3/uL Lymphocytes # (Auto) 0.4-5.4 10 ^3/uL Monocytes # (Auto) 0-1.3 10 ^3/uL POC Glucose 95 70-106 mg/dl Sodium Level 139 136-145 mmol/L Potassium Level 2.9 L 3.5-5.1 mmol/L Chloride Level 110 H 98-107 mmol/L Carbon Dioxide Level 21 20-31 mmol/L Anion Gap 8 5-15 Blood Urea Nitrogen 19 9-23 mg/dL Creatinine 0.40 L 0.550-1.02 mg/dL Glomerular Filtration Rate Calc 101 >90 mL/min BUN/Creatinine Ratio 47.5 H 10.0-20.0 Serum Glucose 100 74-106 mg/dL Calcium Level 7.7 L 8.7-10.4 mg/dL Magnesium Level 1.7 1.6-2.6 mg/dL Total Bilirubin 1.2 H 0.2-1.0 mg/dL Aspartate Amino Transferase (AST) 16 13-40 U/L Alanine Aminotransferase (ALT) 11 7-40 U/L Alkaline Phosphatase 54 46-116 U/L Total Protein 3.9 L 5.7-8.2 g/dL Albumin 2.4 L 3.2-4.8 g/dL Reticulocyte Count (auto) 2.89 H 0.5-1.5 % Haptoglobin 97 42-346 mg/dL Hemoglobin A1c 6.3 H <5.7 % A1C Lactic Acid Level 1.4 0.4-2.0 mmol/L Phosphorus Level 2.4 2.4-5.1 mg/dL Iron Level 160 50-170 ug/dL Total Iron Binding Capacity 179 L 250-425 ug/dL Percent Iron Saturation 89.4 H 15-50 % Ferritin 1392.6 H 10-291 ng/mL C-Reactive Protein High Sensitivity 9.86 H <1.0 mg/dL B-Type Natriuretic Peptide 190.35 0-100 pg/mL Triglycerides Level 82 < 150 mg/dL Cholesterol Level 73 < 200 mg/dL LDL Cholesterol 32 < 100 mg/dL HDL Cholesterol 21 L 40-59 mg/dL Vitamin B12 Level 261 211-911 pg/mL Vitamin D 25-Hydroxy 35.7 30.0-100 ng/mL Folic Acid 1.03 >5.38 ng/mL Thyroid Stimulating Hormone (TSH) 2.96 0.55-4.78 uIU/mL Test 09/30/24 05:25 09/30/24 01:08 09/29/24 23:20 09/29/24 22:59 Range/Units Stool Occult Blood Negative Negative Stool Occult Blood Sample #3 Negative Troponin I High Sensitivity 39 *H </=34 ng/L Influenza Type A Antigen Negative Negative Influenza Type B Antigen Negative Negative SARS-CoV-2 Antigen (Rapid) Negative NEGATIVE Ammonia 31 11-32 umol/L Test 09/29/24 22:00 Range/Units Anisocytosis (manual) Slight Microcytosis Slight Ovalocytes Few Schistocytes Few Prothrombin Time 13.1 H 9.3-11.8 sec Prothrombin Time INR 1.26 H 0.9-1.15 Urine Color Yellow Yellow Urine Clarity Ex.turbid Clear Urine pH 5.5 5.0-9.0 Urine Specific [place] 1.015 1.001-1.035 Urine Protein 1+ H Negative Urine Ketones Negative Negative Urine Blood 1+ H Negative /uL Urine Nitrite Negative Negative Urine Bilirubin Negative Negative Urine Urobilinogen Normal Negative mg/dL Urine Leukocyte Esterase 3+ Negative /uL Urine RBC None seen 0 - 4 /hpf Urine Microscopic WBC 482 H 0-5 /HPF Urine Squamous Epithelial Cells None seen <5 /hpf Urine Bacteria Many H None Seen /hpf Urine Mucus Moderate None Seen Urine Glucose Normal Normal mg/dL Creatine Kinase 21 L 34-145 U/L Urine Opiates Screen Neg NEGATIVE Urine Fentanyl Screen Neg NEGATIVE Urine Barbiturates Screen Neg NEGATIVE Urine Phencyclidine Screen Neg NEGATIVE Urine Amphetamines Screen Neg NEGATIVE Urine Benzodiazepines Screen Neg NEGATIVE Urine Cocaine Screen Neg NEGATIVE Urine Cannabinoids Screen Neg NEGATIVE Plasma/Serum Blood Alcohol < 3.0 <10 mg/dL Microbiology Date/Time Source Procedure Growth Status 09/29/24 22:00 Voided Urine Urine Culture - Preliminary Resulted 09/29/24 22:00 Blood Blood Culture - Preliminary NO GROWTH AFTER 24 HOURS OF INCUBATION. Resulted Assessment 1. Pancytopenia secondary to rheumatoid arthritis and methotrexate and patient needing packed red cell transfusions and the platelets and is going to be transfused 1 more unit of packed red cells. Direct Jaycee is negative. B12 folate is normal 2. Bilateral lower extremity DVT and has IVC filter 3. Metabolic encephalopathy due to UTI with sepsis/pneumonia 4. Possible colitis 5. Pain and swelling and redness in the lower extremities could be secondary to DVT/cellulitis Plan/Recommendation Continue the supportive care next transfuse platelets to keep the platelets over 15,000 and PRBCs to keep hemoglobin over 7 May wait for the bone marrow report Plan discussed with: Patient ALINCHARISMA MD Oct 01, 2024 09:34
[2024-10-01 10:49] LABS: Band Neutrophils % (manual) 6; Eosinophils % (manual) 3 (0-7); Lymphocytes % (manual) 29 (10.0-50.0); Monocytes % (manual) 3 (0-12); Platelet Estimate Decreased
[2024-10-01] MEDS: FOLIC ACID 1 MG in D5W 5% 50 ML INJ SCH (11:37)
[2024-10-01] MEDS: SODIUM CHLORIDE 0.9% 1,000 ML IV SCH (13:16)
[2024-10-01 14:07] LABS: Anti-Nuclear Antibody Direct Negative (Negative)
[2024-10-01] MEDS: VANCOMYCIN 1GM/250ML KIT 250 ML IV SCH (15:39)
[2024-10-02] VITALS (43 sets, daily range): BP systolic 96–121; BP diastolic 42–61; PULSE 78–101; RESP 15–28; TEMP 97.9–99.1; O2SAT 97–100
[2024-10-02 05:14] LABS: Hematocrit 22.2 % (36.0-46.0); Hemoglobin 7.6 g/dL (12.2-16.2); Mean Corpuscular Hemoglobin 31.8 pg (28.0-32.0); Mean Corpuscular Hgb Conc. 34.3 g/dL (32.0-36.0); Mean Corpuscular Volume 92.7 fL (80.0-100.0); Platelet Count (auto) 21 10^3/uL (140-450); Red Blood Cells 2.39 10^6/uL (4.0-5.20); Red Cell Distribution Width 14.7 % (11.8-14.3); White Blood Cell 2.2 10^3/uL (4.4-10.8)
[2024-10-02 05:15] LABS: Band Neutrophils % (manual) 0; Basophils % (manual) 0 (0.0-2.0); Blast Cells 0; Metamyelocytes % 0; Myelocytes % 0; Promyelocytes % 0; Reactive Lymphocytes 0
[2024-10-02 05:31] LABS: Alanine Aminotransferase 13 U/L (7-40); Alkaline Phosphatase 62 U/L (46-116); Anion Gap 7 (5-15); Aspartate Aminotransferase 15 U/L (13-40); BUN/Creatinine Ratio 29.7 (10.0-20.0); Blood Urea Nitrogen 11 mg/dL (9-23); Carbon Dioxide 20 mmol/L (20-31); Magnesium 1.9 mg/dL (1.6-2.6); Sodium 136 mmol/L (136-145)
[2024-10-02 05:32] LABS: Bilirubin, Total 1.1 mg/dL (0.2-1.0)
[2024-10-02 05:34] LABS: Albumin 2.3 g/dL (3.2-4.8); Calcium 7.4 mg/dL (8.7-10.4); Chloride 109 mmol/L (98-107); Glucose 110 mg/dL (74-106); Potassium 3.2 mmol/L (3.5-5.1); Total Protein 3.7 g/dL (5.7-8.2)
[2024-10-02 06:12] LABS: Eosinophils % (manual) 4 (0-7); Hypersegmented Neutrophils Present; Lymphocytes % (manual) 26 (10.0-50.0); Monocytes % (manual) 6 (0-12); Platelet Estimate Markedly Decreased
[2024-10-02] MEDS: POTASSIUM CHL 20MEQ/50ML 50 ML IV SCH (06:44)
[2024-10-02] MEDS: MAGNESIUM SULFATE 1GM/100ML 100 ML IV ONE (06:45)
[2024-10-02] MEDS: LACTULOSE 20Gm/30ML SOLN PO ONE (08:00)
--- NOTE | 2024-10-02 09:23 | DVHPNRES ---
Progress Note Date Seen: Oct 02, 2024 Resident Creating Document: NICKOLAS ZAPATA RESIDENT Medical Necessity Reason Pt with a Central, PICC or Fol: Yes The following are medically ne: Central Line, Glynn Catheter (RN,) Subjective Review of Systems HPI-Patient is 79 years old female with past medical history of hypertension, rheumatoid arthritis on methotrexate, history of upper GI bleeding due to peptic ulcer disease due to ibuprofen, urinary incontinence was brought in by the EMS with the hospital due to generalized weakness and declined functional status. Provider gathered information from patient's son Paulino, and patient. As per son patient has been feeling sick for last 1 month when she had fever, cough and congestion flu-like symptoms and that got better within 2 weeks. But last 1 week patients clinical condition was getting worse, patient was less energetic with a poor appetite, patient was less interactive with the son over the phone. As per patient who spoke to patient's roommate that she was not really getting out of the bed or chair the ambulate. He was feeling tired, fatigued, decreased appetite, not willing to talk or engage in conversation with the son lately. Son feel like patient was elevated confused lately but before she was alert and oriented x4. So son drove over from [address] to check on her and found her lying on the floor on feces and decided to call EMS. Patient was also confused at home where she lives with a roommate. As per son patient was admitted at [facility] in 2018 due to bleeding peptic ulcer and had 4 units of blood transfusion with the 4 units of plasma. On arrival patient was found hypotensive with altered mental status, confused. Blood pressure was as low as 86/ 43, chronic up to 141, tachypneic with a respiration 24, patient is 98.3. Lab workup revealed pancytopenia with leukopenia WBC 3.3, severe anemia with a hemoglobin 4.3, thrombocytopenia with platelets 15, MCV elevated 107.3, elevated RDW 28.9, hyponatremia with a sodium 132, potassium 4.3, increased anion gap 18, BUN 31, serum creatinine 0.71 hyperglycemia with blood sugar 278, lactic acidosis with lactic acid 10.1, calcium 8.8, magnesium 1.9, with a serum total bilirubin 2.4, AST 11, ALT 11, phosphatase 80, ammonia 31, creatinine kinase 21, INR 0.26, mildly elevated elevated troponin I 39, albumin 3.2, TSH 0.97, HGB 10.66. Stool occult blood test 1st sample negative. UDS negative, urinalysis suggestive for UTI with uterine, leukocyte esterase 3+, WBC 482, bacteria many, blood 1+.. Patient tested negative for COVID-19 and influenza type A and B. CXR suspected right lower lung opacity, CT abdomen and pelvis revealed-Trace bilateral pleural effusion with bibasilar opacities. More nodular opacity in the right lower lobe may represent focal infectious process or round atelectasis. Prominent gallbladder with mild pericholecystic fluid, nonspecific, correlation with clinical symptoms and possible ultrasound is recommended. 3. Nonspecific colonic wall thickening may represent colitis versus nondistention. 4. 1.1 cm calculus in the left renal pelvis with mildly prominent left renal collecting system.The uterus is retroverted live multiple fibroids some of which are calcified, CT head -No acute intracranial abnormality. Doppler study of the bilateral lower extremity revealed thrombus from bilateral common femoral vein to posterior tibial vein. Workup revealed iron 160, TIBC 179, % saturation 89.4, ferritin 1392, BNP 190, vitamin B12 261, vitamin D25 35.7, folic acid 109, TSH 2.96. UDS negative, Past medical history: Hypertension, upper GI bleed secondary to peptic ulcer due to ibuprofen abuse in 2018, rheumatoid arthritis currently on methotrexate, urinary incontinence. Surgical history: EGD and colonoscopy which showed no malignancy per patient (in 2018), bilateral knee repair and bilateral hip replacement, has rods in the femur bilaterally. Family history: Unknown (patient is adopted) Social history: She lives with a roommate for the past six months who is taking care of her. She drinks one my cards eliminate per day. Denies current tobacco, alcohol and other drug abuse Allergies: Denies Home medication: Methotrexate, folic acid and lidocaine (unsure why she takes the lidocaine) Patient was seen today for clinical evaluation. Labs and chart reviewed, Patient had a bowel movement in the morning, patient's abdomen was mildly distended, bowel sound + present On physical exam patient had erythema and redness in the back of right lower extremity right lower extremity, redness and swelling has improved in the left lower extremity. Patient had placement of inferior vena caval filter on 09/30/2024 due to bilateral lower extremity DVT with severe thrombocytopenia, pancytopenia Patient still leukopenic, anemic and thrombocytopenic Lab workup trend revealed patient still anemic with a hemoglobin 7.4 today, thrombocytopenia with platelet 21, hypokalemic with potassium 3.2, replenished WBC 3.3> 3.5> 2.7, hemoglobin 4.3> 7.4> 6.6> 7.4, platelet 15> 12> 39> 21, sodium 132>> 139 139, potassium 4.3?> 3.3> 2.9>3.2>, bilirubin 2.4>> 2.3 >1.2>1.1 Patient had 3 units of PRBC and 2 units of platelates transfused after current admission Blood culture no growth so far no growth Patient is more awake and alert today Pending bone marrow study report Ordered repeat CBC, BMP for the afternoon today, monitor platelet count acute sign or symptom of bleeding No sedatives at all for her 10/02/24- at 03:10 p.m.-repeat CBC revealed platelet 20, doctor's high recommended for transfusion of 1 units of platelets, order in place Plan is to repeat CBC after platelet transfusion Objective vital signs Vital Sign Date Time Temp Pulse Resp B/P (MAP) Pulse Ox O2 Delivery O2 Flow Rate FiO2 10/02/24 06:30 83 17 99 10/02/24 06:00 Room Air* 0 21 10/02/24 03:30 98.5 98.5 Total Intake and Output 10/01/24 10/01/24 10/02/24 15:00 23:00 07:00 Intake Total 1825.2 ml 1830 ml 1225 ml Output Total 450 ml 650 ml Balance 1825.2 ml 1380 ml 575 ml medications Current Medications Medications Dose Ordered Sig/Jovon Route Start Time Stop Time Status Last Admin Dose Admin Morphine Sulfate 2 mg Q4HPRN PRN IV 09/30/24 05:45 Vancomycin HCl 0 ml @ 0 mls/hr UD IV 09/30/24 05:45 Diagnostic Test (Pha) 1 strip Q6HR 09/30/24 18:00 10/02/24 06:00 1 STRIP Insulin Human Regular Q6HR SC 09/30/24 18:00 10/01/24 18:21 3 UNITS Dextrose 50 ml UD PRN IV 09/30/24 14:00 Meropenem 50 ml @ 17 mls/hr Q12HR IV 09/30/24 22:00 10/01/24 21:56 17 MLS/HR Folic Acid 1 mg/ Dextrose 50.2 ml @ 200.8 mls/ hr DAILY INJ 10/01/24 10:00 10/01/24 11:37 200.8 MLS/HR Sodium Chloride 1,000 ml @ 75 mls/hr [id number] IV 10/01/24 12:00 10/02/24 03:22 75 MLS/HR Vancomycin HCl 250 ml @ 250 mls/hr Q12H IV 10/01/24 15:15 10/02/24 03:22 250 MLS/HR Pantoprazole Sodium 40 mg DAILY IV 10/02/24 10:00 Potassium Chloride 50 ml @ 25 mls/hr Q2H IV 10/02/24 06:30 10/02/24 12:29 10/02/24 06:44 25 MLS/HR Examination General examination- awake, mildly confused, conversant HEENT- PEERLA, no acute nasal discharge Cardiovascular- S1-S2 audible, rate and rhythm regular, no murmur Respiratory-bilateral lung crackles++ Gastrointestinal-abdominal wall tenderness+, bowel sound+. Nondistended Musculoskeletal- bilateral hand deformity likely complication from rheumatoid arthritis Extremity- red, bilateral lower extremity swollen+, edematous+, left lower leg red, edematous, tender, deformed bilateral hand likely from completion of rheumatoid arthritis, back of the right lower extremity rate, erythematous, tender to touch Genitalia-there is redness and excoriation of the skin around genitalia, inner thigh bilaterally, on the sacrum, on the back of the thigh, Neurological- cranial nerves intact, no acute dysarthria or dysphagia Psychiatry- denies depression or SI or HI Skin- rash erythema with a skin excoriation around genitalia, in her high, in the back of the thigh and on the sacrum laboratory and microbiology Laboratory Tests 10/02/24 04:45 Test 10/02/24 04:45 Range/Units Serum Glucose 110 H 74-106 mg/dL Microbiology Date/Time Source Procedure Growth Status 09/30/24 22:30 Nose MRSA Screen - Final Complete 09/29/24 22:00 Voided Urine Urine Culture - Final Complete 09/29/24 22:00 Blood Blood Culture - Preliminary NO GROWTH AFTER 48 HOURS OF INCUBATION. Resulted Problem List/Assessment/Plan Problem List/Assessment/Plan Assessment and plan #Central nervous system -Acute metabolic encephalopathy likely due to UTI with Sepsis / pneumonia Gram- positive versus Gram-negative -continue current antibiotic meropenem and vancomycin as per pharmacy protocol -avoid dehydration -monitor mental status, vitals, intake output chart No sedatives #Cardiovascular Suspected acute pulmonary edema likely due to anemic heart failure/CHF History of hypertension septic shock #B/L Leg swelling Likely due to DVT/CHF -continue IV fluid as prescribed -discontinued Levophed -monitor vitals -maintain intake output chart #Respiratory system Suspected pneumonia Gram-positive versus Gram-negative Trace bilateral pleural effusion --continue current antibiotic meropenem and vancomycin as per pharmacy protocol -nebulization as required -monitor vitals -pending blood culture, urine culture, sputum culture - #Gastrointestinal -Colitis -history of bleeding peptic ulcer disease likely due to ibuprofen -history of endoscopy and colonoscopy in 2018 after patient had GI bleeding with severe anemia Elevated bilirubin pericholecystic fluid -continue IV fluid -continue IV antibiotic #Genitourinary -suspected UTI with sepsis Dehydration Left renal calculus 1.1 cm, retroverted Uterus with multiple fibroids some of which are calcified. -continue current IV antibiotic -pending blood culture, urine culture, sputum culture #Infectious disease -Septic shock likely due to UTI with sepsis/pneumonia/cellulitis of the left lower extremity -cellulitis of the left lower extremity -suspected pneumonia Gram-positive versus Gram-negative -pending blood culture, urine culture, wound culture -continue current IV antibiotic #Hematology Pancytopenia-status post blood transfusion History of GI bleeding History of bleeding peptic ulcer disease Severe anemia Leukopenia Thrombocytopenia Reticulocytosis Suspected immunosuppression from methotrexate Bilateral DVT-patient with severe anemia, --order in place for inferior vena caval filter -10/01/2024-patient was seen by Dr. Funes, recommendation reviewed and appreciated -status post bone marrow aspiration, pending report -status post blood transfusion -ordered for repeat CBC, CMP to monitor platelet count and others -10/02/24-03:10 p.m.-repeat CBC revealed platelet 20, doctor's high recommended for transfusion of 1 units of platelets, order in place -Plan is to repeat CBC after platelet transfusion Patient had 3 units of PRBC and 2 units of platelates transfused after current admission -monitor any sign or symptoms of bleeding -monitor CBC, # Rheumatology -history of rheumatoid arthritis with bilateral hand deformity/contracture -monitor clinically # Metabolic/ Endocrine -hypokalemia replenished -prediabetes, HGB A1c 6.3 -insulin sliding scale Mild hyponatremia Lactic acidosis-resolved -continue current management #Skin or elementary Skin excoriation and erythema around genitalia/inner thigh bilaterally, sacrum area and back of the thigh Patient with septic shock, pancytopenia, s/p blood transfusion. needed another unit of blood transfusion today. Patient has bilateral lower extremity DVT, status post IV filter . On IV fluid and IV antibiotic. Patient is clinically unstable to be transferred at this time. DVT prophylaxis pantoprazole DVT prophylaxis- Drips-on Levophed Lines-left internal jugular vein central line Glynn's catheter please Central line in the right internal jugular vei established 09/30/2024 On Glynn's catheter since admission Antibiotic Meropenem and vancomycin as per pharmacy protocol Goals of care/advance care planning Code status ; discussed with the patient >15 minutes PUD prophylaxis: Pantoprazole DVT prophylaxis: Patient was severe anemia with thrombocytopenia, no antiplatelet or blood thinner at this moment Plan discussed with Dr. Arora, nursing staff, patient, Son Total time spent on patient evaluation, chart review, assessment and plan, total Critical time spent 84 minutes Plan discussed with: Son (RN), Other My Orders My Orders Orders - NICKOLAS ZAPATA Procedure Category Date Status Time Urine Bacterial [place] 10/01/24 In Process Culture 12:33 Communication Order ORDERS 10/01/24 Transmitted 12:43 * Dietary Consult CONS 10/01/24 Transmitted 14:27 Cover Wound With Foam GUSTABO 10/01/24 In Process Dressing 11:00 Cleanse Wound With GUSTABO 10/01/24 In Process Mild Soap A 11:00 Pantoprazole PHA 10/02/24 In Process (Protonix) 10:00 Complete Blood Count LAB 10/02/24 Logged 14:06 Basic Metabolic Panel LAB 10/02/24 Logged 14:06 Stool Occult Blood LAB 10/02/24 Logged 08:24 CC Plasma Assessment Blood Product Administration S: [id number] NICKOLAS ZAPATA Oct 02, 2024 09:23
[2024-10-02] MEDS: PANTOPRAZOLE 40 MG/10 ML VIAL INJ IV SCH (10:22)
[2024-10-02 14:49] LABS: Hemoglobin 8.1 g/dL (12.2-16.2); White Blood Cell 2.2 10^3/uL (4.4-10.8)
[2024-10-02 14:52] LABS: Hematocrit 23.5 % (36.0-46.0); Mean Corpuscular Hemoglobin 32.2 pg (28.0-32.0); Mean Corpuscular Hgb Conc. 34.3 g/dL (32.0-36.0); Mean Corpuscular Volume 93.8 fL (80.0-100.0); Red Blood Cells 2.51 10^6/uL (4.0-5.20); Red Cell Distribution Width 15.2 % (11.8-14.3)
[2024-10-02 14:54] LABS: Platelet Count (auto) 20 10^3/uL (140-450)
[2024-10-02 14:55] LABS: Band Neutrophils % (manual) 0; Basophils % (manual) 0 (0.0-2.0); Blast Cells 0; Metamyelocytes % 0; Myelocytes % 0; Potassium 4.2 mmol/L (3.5-5.1); Promyelocytes % 0; Reactive Lymphocytes 0
[2024-10-02 14:56] LABS: Anion Gap 6 (5-15)
[2024-10-02 15:01] LABS: BUN/Creatinine Ratio 24.3 (10.0-20.0)
[2024-10-02 15:03] LABS: Blood Urea Nitrogen 9 mg/dL (9-23); Calcium 7.4 mg/dL (8.7-10.4); Carbon Dioxide 19 mmol/L (20-31); Chloride 109 mmol/L (98-107); Glucose 145 mg/dL (74-106); Sodium 134 mmol/L (136-145)
[2024-10-02 15:42] LABS: Eosinophils % (manual) 2 (0-7); Lymphocytes % (manual) 25 (10.0-50.0); Monocytes % (manual) 5 (0-12); Platelet Estimate Markedly Decreased
--- NOTE | 2024-10-02 17:36 | DVHSR ---
APPROVED REPORT EXAM: Two-dimensional and M-mode echocardiogram with Doppler and color Doppler. Blood Pressure: 122/61 mmHg INDICATION NSTEMI Probable Type II RISK FACTORS Height: 5' 4", Weight: 145 DIMENSIONS LVDd4.2 (3.8-5.7cm)LA (2D)4.0 (1.9-4.0cm)Aortic Root3.3 (2.0-3.7cm) LVDs3.0 (2.5-4.0cm)LA (MM) (1.9-4.0cm)Aortic Cusp Exc2.1 (1.5-2.0cm) EF (%) 57.0 (55-70%)Rt. Atrium3.9 (1.9-4.0cm)Asc. Aorta cm IVSd1.1 (0.7-1.1cm)RV (D) (1.8-2.4cm) PWd1.0 (0.7-1.1cm) Mitral Valve MitralMitral Stenosis E wave1.20m/sMV Mean GR.mmHg A wave1.10m/sMV Peak GR.mmHg E/A ratio1.12D MVAcm2 Aortic Valve Aortic ValveAortic Stenosis V11.10m/Dante Mean GR.3mmHg V21.20m/Dante Peak GR.6mmHg LVOT Diameter2.3 (1.8-2.4cm)Doppler AVA3.81cm2 Pulmonic Valve V20.80m/s Tricuspid Valve TR Velocity2.50m/s [id number] Conclusion Technically good study. Sinus rhythm. Aortic root enlargement. Left atrial enlargement. Dilation of the sinuses of Valsalva. Valves appear to be structurally normal. EF of 65% with normal RV function. Mild TR. No pericardial effusion masses or vegetations discernible.
[2024-10-02 17:39] LABS: Hemoglobin 8.5 g/dL (12.2-16.2); White Blood Cell 2.6 10^3/uL (4.4-10.8)
[2024-10-02 17:42] LABS: Hematocrit 25.2 % (36.0-46.0); Mean Corpuscular Hgb Conc. 33.8 g/dL (32.0-36.0); Mean Corpuscular Volume 94.6 fL (80.0-100.0); Red Blood Cells 2.66 10^6/uL (4.0-5.20); Red Cell Distribution Width 14.8 % (11.8-14.3)
[2024-10-02 17:44] LABS: Platelet Count (auto) 19 10^3/uL (140-450)
[2024-10-02 18:46] LABS: Basophils % (manual) 0 (0.0-2.0); Blast Cells 0; Metamyelocytes % 0; Myelocytes % 0; Promyelocytes % 0; Reactive Lymphocytes 0
[2024-10-02 18:50] LABS: Band Neutrophils % (manual) 1; Eosinophils % (manual) 6 (0-7); Lymphocytes % (manual) 33 (10.0-50.0); Monocytes % (manual) 5 (0-12); Platelet Estimate Markedly Decreased
[2024-10-03] VITALS (11 sets, daily range): BP systolic 99–125; BP diastolic 43–88; PULSE 82–100; RESP 13–24; TEMP 97.9–98.9; O2SAT 96–99
[2024-10-03 02:44] LABS: Mean Corpuscular Hgb Conc. 35.3 g/dL (32.0-36.0); Platelet Count (auto) 36 10^3/uL (140-450)
[2024-10-03 02:46] LABS: Hematocrit 21.6 % (36.0-46.0); Hemoglobin 7.6 g/dL (12.2-16.2); Mean Corpuscular Hemoglobin 32.8 pg (28.0-32.0); Red Blood Cells 2.33 10^6/uL (4.0-5.20); Red Cell Distribution Width 14.8 % (11.8-14.3); White Blood Cell 2.9 10^3/uL (4.4-10.8)
[2024-10-03 03:14] LABS: Basophils % (manual) 0 (0.0-2.0); Blast Cells 0; Metamyelocytes % 0; Myelocytes % 0; Promyelocytes % 0; Reactive Lymphocytes 0
[2024-10-03 03:21] LABS: Alanine Aminotransferase 16 U/L (7-40); Alkaline Phosphatase 75 U/L (46-116); Anion Gap 6 (5-15); Aspartate Aminotransferase 18 U/L (13-40); BUN/Creatinine Ratio 28.6 (10.0-20.0); Blood Urea Nitrogen 10 mg/dL (9-23); Carbon Dioxide 21 mmol/L (20-31); Glucose 88 mg/dL (74-106); Magnesium 1.9 mg/dL (1.6-2.6)
[2024-10-03 03:22] LABS: Bilirubin, Total 0.8 mg/dL (0.2-1.0)
[2024-10-03 03:25] LABS: Albumin 2.3 g/dL (3.2-4.8); Calcium 7.5 mg/dL (8.7-10.4); Chloride 108 mmol/L (98-107); Potassium 3.5 mmol/L (3.5-5.1); Sodium 135 mmol/L (136-145); Total Protein 3.8 g/dL (5.7-8.2)
[2024-10-03 05:53] LABS: Band Neutrophils % (manual) 1; Lymphocytes % (manual) 26 (10.0-50.0)
[2024-10-03 05:54] LABS: Eosinophils % (manual) 4 (0-7); Monocytes % (manual) 17 (0-12); Platelet Estimate Decreased
--- NOTE | 2024-10-03 18:12 | DVHPN2 ---
Subjective Patient reports having generalized weakness. Reviewed: Care Plan, H&P, Labs, Medications Changes from previous H/P or p: No Changes General: Per HPI Objective Vitals Vital Signs Date Time Temp Pulse Resp B/P (MAP) Pulse Ox O2 Delivery O2 Flow Rate FiO2 10/03/24 17:00 98.0 94 18 118/88 (98) 96 98.0 10/03/24 08:00 Room Air* 0 21 Intake/Output Intake and Output 10/03/24 07:00 Intake Total 4835.7 ml Output Total 1150 ml Balance 3685.7 ml Intake Oral 2140 ml IV Total 2035.7 ml Blood Product 300 ml Other 360 ml Output Urine Total 1150 ml # Bowel Movements 2 General Appearance: Alert, Oriented X3, Cooperative, mild distress HEENT: Atraumatic, PERRLA Lungs: Clear to auscultation, Normal air movement Cardiovascular: Normal S1, Normal S2 Abdomen: Normal bowel sounds, Soft Rectal: Normal inspection Musculoskeletal: Normal sensory function, Normal motor function Extremities: Other (Deformity of both hands) Skin: Dry, Intact Psych/Mental Status: Mental status NL, Mood NL Medications Current Medications Medications Dose Ordered Sig/Jovon Route Start Time Stop Time Status Last Admin Dose Admin Morphine Sulfate 2 mg Q4HPRN PRN IV 09/30/24 05:45 Vancomycin HCl 0 ml @ 0 mls/hr UD IV 09/30/24 05:45 Diagnostic Test (Pha) 1 strip Q6HR 09/30/24 18:00 10/03/24 17:35 1 STRIP Insulin Human Regular Q6HR SC 09/30/24 18:00 10/03/24 17:35 2 UNITS Dextrose 50 ml UD PRN IV 09/30/24 14:00 Meropenem 50 ml @ 17 mls/hr Q12HR IV 09/30/24 22:00 10/03/24 11:57 17 MLS/HR Folic Acid 1 mg/ Dextrose 50.2 ml @ 200.8 mls/ hr DAILY INJ 10/01/24 10:00 10/03/24 11:04 200.8 MLS/HR Sodium Chloride 1,000 ml @ 75 mls/hr [id number] IV 10/01/24 12:00 10/03/24 13:03 75 MLS/HR Vancomycin HCl 250 ml @ 250 mls/hr Q12H IV 10/01/24 15:15 10/03/24 15:05 250 MLS/HR Pantoprazole Sodium 40 mg DAILY IV 10/02/24 10:00 10/03/24 09:33 40 MG Laboratory Results Laboratory Tests 10/03/24 02:22 Chemistry Test 10/03/24 02:22 Albumin 2.3 g/dL (3.2-4.8) L Calcium Level 7.5 mg/dL (8.7-10.4) L Magnesium Level 1.9 mg/dL (1.6-2.6) Total Protein 3.8 g/dL (5.7-8.2) L LFT Test 10/03/24 02:22 Alanine Aminotransferase (ALT) 16 U/L (7-40) Alkaline Phosphatase 75 U/L (46-116) Aspartate Amino Transferase (AST) 18 U/L (13-40) Total Bilirubin 0.8 mg/dL (0.2-1.0) Urinalysis Test 09/29/24 22:00 Urine Color Yellow (Yellow) Urine Clarity Ex.turbid (Clear) Urine pH 5.5 (5.0-9.0) Urine Specific [place] 1.015 (1.001-1.035) Urine Protein 1+ (Negative) H Urine Ketones Negative (Negative) Urine Blood 1+ /uL (Negative) H Urine Nitrite Negative (Negative) Urine Bilirubin Negative (Negative) Urine Urobilinogen Normal mg/dL (Negative) Urine Leukocyte Esterase 3+ /uL (Negative) Urine RBC None seen /hpf (0 - 4) Urine Microscopic WBC 482 /HPF (0-5) H Urine Squamous Epithelial Cells None seen /hpf (<5) Urine Bacteria Many /hpf (None Seen) H Urine Mucus Moderate (None Seen) Urine Glucose Normal mg/dL (Normal) Microbiology Microbiology Date/Time Source Procedure Growth Status 10/01/24 15:25 Voided Urine Urine Culture - Preliminary Resulted 09/30/24 22:30 Nose MRSA Screen - Final Complete 09/29/24 22:00 Blood Blood Culture - Preliminary NO GROWTH AFTER 72 HOURS OF INCUBATION. Resulted Labs and/or images reviewed: Labs reviewed by me, Image(s) reviewed by me Assessment/Plan Assessment/Plan Impression: -metabolic encephalopathy -probable sepsis -pancytopenia -rheumatoid arthritis -bilateral lower extremity DVT -acute diastolic heart failure Plan: -patient was status post IVC filter placement -hematology consultation: Recommendations reviewed -continue current antibiotic therapy -hold anticoagulation given persistent thrombocytopenia -PT consultation -repeat labs in a.m. Total time spent with patient discussing and formulating plan of care: 35 minutes. This medical document was created using an electronic medical record system with [employer] system. Although this document has been carefully reviewed, there may still be some phonetic and typographical errors. These areas are purely typographical due to imperfections of the software programs, and do not reflect any compromise in the patient's medical care. Plan discussed with: Patient, Other (RN) My Orders Orders - CLARICE OG NP Procedure Category Date Status Time Basic Metabolic Panel LAB 10/04/24 Verified 04:00 Pt Request For Service PT 10/03/24 Verified 18:11 Date of Service: Oct 04, 2024 Billing Provider: CLARICE OG NP Common Visit Codes: [id number] INP/OBS CARE(HIGH) CLARICE OG NP Oct 03, 2024 18:12
[2024-10-04] VITALS (8 sets, daily range): BP systolic 105–138; BP diastolic 61–67; PULSE 66–107; RESP 17–30; TEMP 97.6–98.7; O2SAT 93–98
[2024-10-04 07:02] LABS: Hemoglobin 8.7 g/dL (12.2-16.2); White Blood Cell 4.1 10^3/uL (4.4-10.8)
[2024-10-04 07:05] LABS: Hematocrit 25.1 % (36.0-46.0); Mean Corpuscular Hemoglobin 32.5 pg (28.0-32.0); Mean Corpuscular Hgb Conc. 34.8 g/dL (32.0-36.0); Mean Corpuscular Volume 93.4 fL (80.0-100.0); Platelet Count (auto) 26 10^3/uL (140-450); Red Blood Cells 2.68 10^6/uL (4.0-5.20); Red Cell Distribution Width 14.7 % (11.8-14.3)
[2024-10-04 07:06] LABS: Anion Gap 7 (5-15); Carbon Dioxide 21 mmol/L (20-31); Chloride 106 mmol/L (98-107); Potassium 3.7 mmol/L (3.5-5.1)
[2024-10-04 07:10] LABS: Calcium 7.3 mg/dL (8.7-10.4); Sodium 134 mmol/L (136-145)
[2024-10-04 07:12] LABS: BUN/Creatinine Ratio 32.5 (10.0-20.0); Basophils % (manual) 0 (0.0-2.0); Blast Cells 0; Blood Urea Nitrogen 13 mg/dL (9-23); Glucose 101 mg/dL (74-106); Metamyelocytes % 0; Myelocytes % 0; Promyelocytes % 0; Reactive Lymphocytes 0
[2024-10-04 08:33] LABS: Band Neutrophils % (manual) 2; Eosinophils % (manual) 2 (0-7); Lymphocytes % (manual) 20 (10.0-50.0); Monocytes % (manual) 21 (0-12); Platelet Estimate Decreased
--- NOTE | 2024-10-04 11:10 | DVHPN2 ---
Subjective Patient reports having generalized weakness. Reviewed: Care Plan, H&P, Labs, Medications Changes from previous H/P or p: No Changes General: Per HPI Objective Vitals Vital Signs Date Time Temp Pulse Resp B/P (MAP) Pulse Ox O2 Delivery O2 Flow Rate FiO2 10/04/24 09:00 98.3 96 18 110/63 (79) 96 98.3 10/04/24 08:00 Room Air* 0 21 Intake/Output Intake and Output 10/04/24 07:00 Intake Total 2924 ml Output Total 1225 ml Balance 1699 ml Intake Oral 1324 ml IV Total 1600 ml Output Urine Total 1225 ml General Appearance: Alert, Oriented X3, Cooperative, mild distress HEENT: Atraumatic, PERRLA Lungs: Clear to auscultation, Normal air movement Cardiovascular: Normal S1, Normal S2 Abdomen: Normal bowel sounds, Soft Rectal: Normal inspection Musculoskeletal: Normal sensory function, Normal motor function Extremities: Other (Deformity of both hands) Skin: Dry, Intact Psych/Mental Status: Mental status NL, Mood NL Medications Current Medications Medications Dose Ordered Sig/Jvoon Route Start Time Stop Time Status Last Admin Dose Admin Morphine Sulfate 2 mg Q4HPRN PRN IV 09/30/24 05:45 Vancomycin HCl 0 ml @ 0 mls/hr UD IV 09/30/24 05:45 Diagnostic Test (Pha) 1 strip Q6HR 09/30/24 18:00 10/04/24 06:26 1 STRIP Insulin Human Regular Q6HR SC 09/30/24 18:00 10/03/24 17:35 2 UNITS Dextrose 50 ml UD PRN IV 09/30/24 14:00 Meropenem 50 ml @ 17 mls/hr Q12HR IV 09/30/24 22:00 10/04/24 09:42 17 MLS/HR Folic Acid 1 mg/ Dextrose 50.2 ml @ 200.8 mls/ hr DAILY INJ 10/01/24 10:00 10/04/24 10:33 200.8 MLS/HR Sodium Chloride 1,000 ml @ 75 mls/hr [id number] IV 10/01/24 12:00 10/04/24 03:30 75 MLS/HR Vancomycin HCl 250 ml @ 250 mls/hr Q12H IV 10/01/24 15:15 10/04/24 03:22 250 MLS/HR Pantoprazole Sodium 40 mg DAILY IV 10/02/24 10:00 10/04/24 09:42 40 MG Laboratory Results Laboratory Tests 10/04/24 05:44 Chemistry Test 10/04/24 05:44 Calcium Level 7.3 mg/dL (8.7-10.4) L Urinalysis Test 09/29/24 22:00 Urine Color Yellow (Yellow) Urine Clarity Ex.turbid (Clear) Urine pH 5.5 (5.0-9.0) Urine Specific [place] 1.015 (1.001-1.035) Urine Protein 1+ (Negative) H Urine Ketones Negative (Negative) Urine Blood 1+ /uL (Negative) H Urine Nitrite Negative (Negative) Urine Bilirubin Negative (Negative) Urine Urobilinogen Normal mg/dL (Negative) Urine Leukocyte Esterase 3+ /uL (Negative) Urine RBC None seen /hpf (0 - 4) Urine Microscopic WBC 482 /HPF (0-5) H Urine Squamous Epithelial Cells None seen /hpf (<5) Urine Bacteria Many /hpf (None Seen) H Urine Mucus Moderate (None Seen) Urine Glucose Normal mg/dL (Normal) Microbiology Microbiology Date/Time Source Procedure Growth Status 10/01/24 15:25 Voided Urine Urine Culture - Preliminary Resulted 09/30/24 22:30 Nose MRSA Screen - Final Complete 09/29/24 22:00 Blood Blood Culture - Preliminary NO GROWTH AFTER 72 HOURS OF INCUBATION. Resulted Labs and/or images reviewed: Labs reviewed by me, Image(s) reviewed by me Assessment/Plan Assessment/Plan Impression: -metabolic encephalopathy -probable sepsis -pancytopenia -rheumatoid arthritis -bilateral lower extremity DVT -acute diastolic heart failure Plan: Events: No events overnight. Patient states that she was tolerating oral intake. Continues to have severe malaise. Continues to have thrombocytopenia. Bone marrow biopsy reviewed. Long discussion made with the patient's son and daughter was bedside. Discussion made regarding transfer as well as discharge planning. Given patient has persistent thrombocytopenia, patient was still deemed unstable to transfer at this time. -patient was status post IVC filter placement -hematology consultation: Recommendations reviewed -continue current antibiotic therapy: Consider deescalating once repeat urine culture has been obtained. Current UC is contaminated. -hold anticoagulation given persistent thrombocytopenia -PT consultation : Pending -repeat labs in a.m. -re-evaluate for stability to transfer to [facility] tomorrow. Total time spent with patient discussing and formulating plan of care: 35 minutes. Total time spent with patient and family regarding advance care plannin minutes. This medical document was created using an electronic medical record system with [employer] dictation system. Although this document has been carefully reviewed, there may still be some phonetic and typographical errors. These areas are purely typographical due to imperfections of the software programs, and do not reflect any compromise in the patient's medical care. Plan discussed with: Patient, Daughter, Son, Other (RN) My Orders Orders - CLARICE OG NP Procedure Category Date Status Time Pt Request For Service PT 10/03/24 Logged 18:11 Basic Metabolic Panel LAB 10/05/24 Verified 04:00 Complete Blood Count LAB 10/05/24 Verified 04:00 Morphine Sulfate PHA 10/04/24 Logged Injection 11:15 Hydrocodone-Acet PHA 10/04/24 Logged 5/325mg Tab ([place] 11:15 Acetaminophen Tab Or PHA 10/04/24 Logged Cap (Tylenol Tablet 11:15 Ondansetron Hcl PHA 10/04/24 Logged (Zofran) 11:15 Docusate Sodium PHA 10/04/24 Logged Capsule (Colace 11:15 Date of Service: Oct 04, 2024 Billing Provider: CLARICE OG NP Common Visit Codes: [id number] INP/OBS CARE(HIGH) Secondary Visit Codes: [id number] CARE PLAN 30 MINUTES CLARICE OG NP Oct 04, 2024 11:10
[2024-10-04] MEDS ORDERED: ACETAMINOPHEN 500 MG TAB or CAP PO PRN (11:15)
[2024-10-04] MEDS ORDERED: MORPHINE SULFATE INJ 2 MG/ml SYRG IV PRN (11:15)
[2024-10-04] MEDS ORDERED: DOCUSATE SOD 100 MG CAP PO PRN (11:15)
[2024-10-04] MEDS ORDERED: ONDANSETRON HCL 4 MG/2 ML VIAL IV PRN (11:15)
[2024-10-04] MEDS ORDERED: HYDROcodone-ACET 5/325MG TAB PO PRN (11:15)
[2024-10-05] VITALS (8 sets, daily range): BP systolic 90–142; BP diastolic 42–63; PULSE 93–108; RESP 15–19; TEMP 97.8–98.7; O2SAT 96–99
[2024-10-05 06:16] LABS: White Blood Cell 4.2 10^3/uL (4.4-10.8)
[2024-10-05 06:19] LABS: Hematocrit 26.2 % (36.0-46.0); Mean Corpuscular Hemoglobin 32.4 pg (28.0-32.0); Mean Corpuscular Hgb Conc. 34.2 g/dL (32.0-36.0); Mean Corpuscular Volume 94.8 fL (80.0-100.0); Platelet Count (auto) 22 10^3/uL (140-450); Red Blood Cells 2.76 10^6/uL (4.0-5.20); Red Cell Distribution Width 14.9 % (11.8-14.3)
[2024-10-05 06:29] LABS: Anion Gap 5 (5-15); Carbon Dioxide 23 mmol/L (20-31); Potassium 3.6 mmol/L (3.5-5.1); Sodium 137 mmol/L (136-145)
[2024-10-05 06:34] LABS: Basophils % (manual) 0 (0.0-2.0); Metamyelocytes % 0; Myelocytes % 0; Promyelocytes % 0; Reactive Lymphocytes 0
[2024-10-05 06:35] LABS: BUN/Creatinine Ratio 34.8 (10.0-20.0); Blood Urea Nitrogen 16 mg/dL (9-23)
[2024-10-05 06:37] LABS: Calcium 7.5 mg/dL (8.7-10.4); Chloride 109 mmol/L (98-107); Glucose 106 mg/dL (74-106)
[2024-10-05 08:23] LABS: Band Neutrophils % (manual) 1; Blast Cells 8; Eosinophils % (manual) 8 (0-7); Lymphocytes % (manual) 17 (10.0-50.0)
[2024-10-05 08:24] LABS: Monocytes % (manual) 20 (0-12); Platelet Estimate Markedly Decreased
--- NOTE | 2024-10-05 12:40 | DVHPNRES ---
Progress Note Date Seen: Oct 05, 2024 Resident Creating Document: NICKOLAS ZAPATA RESIDENT Medical Necessity Reason Pt with a Central, PICC or Fol: Yes The following are medically ne: Central Line, Glynn Catheter (RN,) Subjective Review of Systems HPI-Patient is 79 years old female with past medical history of hypertension, rheumatoid arthritis on methotrexate, history of upper GI bleeding due to peptic ulcer disease due to ibuprofen, urinary incontinence was brought in by the EMS with the hospital due to generalized weakness and declined functional status. Provider gathered information from patient's son Paulino, and patient. As per son patient has been feeling sick for last 1 month when she had fever, cough and congestion flu-like symptoms and that got better within 2 weeks. But last 1 week patients clinical condition was getting worse, patient was less energetic with a poor appetite, patient was less interactive with the son over the phone. As per patient who spoke to patient's roommate that she was not really getting out of the bed or chair the ambulate. He was feeling tired, fatigued, decreased appetite, not willing to talk or engage in conversation with the son lately. Son feel like patient was elevated confused lately but before she was alert and oriented x4. So son drove over from [address] to check on her and found her lying on the floor on feces and decided to call EMS. Patient was also confused at home where she lives with a roommate. As per son patient was admitted at [facility] in 2018 due to bleeding peptic ulcer and had 4 units of blood transfusion with the 4 units of plasma. On arrival patient was found hypotensive with altered mental status, confused. Blood pressure was as low as 86/ 43, chronic up to 141, tachypneic with a respiration 24, patient is 98.3. Lab workup revealed pancytopenia with leukopenia WBC 3.3, severe anemia with a hemoglobin 4.3, thrombocytopenia with platelets 15, MCV elevated 107.3, elevated RDW 28.9, hyponatremia with a sodium 132, potassium 4.3, increased anion gap 18, BUN 31, serum creatinine 0.71 hyperglycemia with blood sugar 278, lactic acidosis with lactic acid 10.1, calcium 8.8, magnesium 1.9, with a serum total bilirubin 2.4, AST 11, ALT 11, phosphatase 80, ammonia 31, creatinine kinase 21, INR 0.26, mildly elevated elevated troponin I 39, albumin 3.2, TSH 0.97, HGB 10.66. Stool occult blood test 1st sample negative. UDS negative, urinalysis suggestive for UTI with uterine, leukocyte esterase 3+, WBC 482, bacteria many, blood 1+.. Patient tested negative for COVID-19 and influenza type A and B. CXR suspected right lower lung opacity, CT abdomen and pelvis revealed-Trace bilateral pleural effusion with bibasilar opacities. More nodular opacity in the right lower lobe may represent focal infectious process or round atelectasis. Prominent gallbladder with mild pericholecystic fluid, nonspecific, correlation with clinical symptoms and possible ultrasound is recommended. 3. Nonspecific colonic wall thickening may represent colitis versus nondistention. 4. 1.1 cm calculus in the left renal pelvis with mildly prominent left renal collecting system.The uterus is retroverted live multiple fibroids some of which are calcified, CT head -No acute intracranial abnormality. Doppler study of the bilateral lower extremity revealed thrombus from bilateral common femoral vein to posterior tibial vein. Workup revealed iron 160, TIBC 179, % saturation 89.4, ferritin 1392, BNP 190, vitamin B12 261, vitamin D25 35.7, folic acid 109, TSH 2.96. UDS negative, Past medical history: Hypertension, upper GI bleed secondary to peptic ulcer due to ibuprofen abuse in 2018, rheumatoid arthritis currently on methotrexate, urinary incontinence. Surgical history: EGD and colonoscopy which showed no malignancy per patient (in 2018), bilateral knee repair and bilateral hip replacement, has rods in the femur bilaterally. Family history: Unknown (patient is adopted) Social history: She lives with a roommate for the past six months who is taking care of her. She drinks one my cards eliminate per day. Denies current tobacco, alcohol and other drug abuse Allergies: Denies Home medication: Methotrexate, folic acid and lidocaine (unsure why she takes the lidocaine) Patient was seen today for clinical evaluation. Labs and chart reviewed, Patient reports feeling better today Order for physical therapy in place Patient still anemic and thrombocytopenic Lab workup trend revealed patient still anemic WBC 3.3> 3.5> 2.7, hemoglobin 4.3> 7.4> 6.6> 7.4> 8.7> 9.0, platelet 15> 12> 39> 21> 36> 26> 22,, sodium 132>> 139 139> 137, potassium 4.3?> 3.3> 2.9>3.2> 3.6, bilirubin 2.4>> 2.3 >1.2>1.1> 0.8 Peripheral blood smear evealed marked microcytic anemia, marked thrombocytopenia, mild leukopenia with a few hypersegmented neutrophils. Bone marrow study Finding revealed mild nonspecific atypical myeloid findings without overt increase in blasts. No immunophenotypic evidence of B-cell or T- cell lymphoproliferative disorder Patient had 3 units of PRBC and 3 units of platelates transfused after current admission Blood culture no growth so far no growth Objective vital signs Vital Sign Date Time Temp Pulse Resp B/P (MAP) Pulse Ox O2 Delivery O2 Flow Rate FiO2 10/05/24 09:00 98.1 98 15 110/62 (78) 99 98.1 10/04/24 20:00 Room Air* 0 21 Total Intake and Output 10/04/24 10/04/24 10/05/24 15:00 23:00 07:00 Intake Total 360.2 ml 1744 ml 750 ml Output Total 850 ml 1750 ml Balance 360.2 ml 894 ml -1000 ml medications Current Medications Medications Dose Ordered Sig/Jovon Route Start Time Stop Time Status Last Admin Dose Admin Vancomycin HCl 0 ml @ 0 mls/hr UD IV 09/30/24 05:45 Diagnostic Test (Pha) 1 strip Q6HR 09/30/24 18:00 10/05/24 11:57 1 STRIP Insulin Human Regular Q6HR SC 09/30/24 18:00 10/05/24 12:19 2 UNITS Dextrose 50 ml UD PRN IV 09/30/24 14:00 Meropenem 50 ml @ 17 mls/hr Q12HR IV 09/30/24 22:00 10/05/24 12:09 17 MLS/HR Folic Acid 1 mg/ Dextrose 50.2 ml @ 200.8 mls/ hr DAILY INJ 10/01/24 10:00 10/04/24 10:33 200.8 MLS/HR Vancomycin HCl 250 ml @ 250 mls/hr Q12H IV 10/01/24 15:15 10/05/24 03:19 250 MLS/HR Pantoprazole Sodium 40 mg DAILY IV 10/02/24 10:00 10/05/24 12:08 40 MG Morphine Sulfate 1 mg Q4HPRN PRN IV 10/04/24 11:15 Acetaminophen/ Hydrocodone Bitart 1 tab Q6HPRN PRN PO 10/04/24 11:15 Acetaminophen 500 mg Q8HP PRN PO 10/04/24 11:15 Ondansetron HCl 4 mg Q6HP PRN IV 10/04/24 11:15 Docusate Sodium 100 mg BID PRN PO 10/04/24 11:15 Examination General examination- awake, mildly confused, conversant HEENT- PEERLA, no acute nasal discharge Cardiovascular- S1-S2 audible, rate and rhythm regular, no murmur Respiratory-bilateral lung crackles++ Gastrointestinal-abdominal wall tenderness+, bowel sound+. Nondistended Musculoskeletal- bilateral hand deformity likely complication from rheumatoid arthritis Extremity- red, bilateral lower extremity swollen+, edematous+, left lower leg red, edematous, tender, deformed bilateral hand likely from completion of rheumatoid arthritis, back of the right lower extremity rate, erythematous, tender to touch Genitalia-there is redness and excoriation of the skin around genitalia, inner thigh bilaterally, on the sacrum, on the back of the thigh, Neurological- cranial nerves intact, no acute dysarthria or dysphagia Psychiatry- denies depression or SI or HI Skin- rash erythema with a skin excoriation around genitalia, in her high, in the back of the thigh and on the sacrum laboratory and microbiology Laboratory Tests 10/05/24 05:09 Test 10/05/24 05:09 Range/Units Serum Glucose 106 74-106 mg/dL Microbiology Date/Time Source Procedure Growth Status 10/01/24 15:25 Voided Urine Urine Culture - Final Complete 09/30/24 22:30 Nose MRSA Screen - Final Complete 09/29/24 22:00 Blood Blood Culture - Final NO GROWTH AFTER 5 DAYS OF INCUBATION. Complete Problem List/Assessment/Plan Problem List/Assessment/Plan Assessment and plan #Central nervous system -Acute metabolic encephalopathy likely due to UTI with Sepsis / pneumonia Gram- positive versus Gram-negative -continue current antibiotic meropenem and vancomycin as per pharmacy protocol -avoid dehydration -monitor mental status, vitals, intake output chart No sedatives #Cardiovascular Suspected acute pulmonary edema likely due to anemic heart failure/CHF History of hypertension septic shock #B/L Leg swelling Likely due to DVT/CHF Status post IVC filter -continue IV fluid as prescribed -discontinued Levophed -monitor vitals -maintain intake output chart #Respiratory system Suspected pneumonia Gram-positive versus Gram-negative Trace bilateral pleural effusion --continue current antibiotic meropenem and vancomycin as per pharmacy protocol -nebulization as required -monitor vitals -pending blood culture, urine culture, sputum culture - #Gastrointestinal -Colitis -history of bleeding peptic ulcer disease likely due to ibuprofen -history of endoscopy and colonoscopy in 2018 after patient had GI bleeding with severe anemia Elevated bilirubin pericholecystic fluid -continue IV fluid -continue IV antibiotic #Genitourinary -suspected UTI with sepsis Dehydration Left renal calculus 1.1 cm, retroverted Uterus with multiple fibroids some of which are calcified. -continue current IV antibiotic - blood culture, urine culture, sputum culture-negative #Infectious disease -Septic shock likely due to UTI with sepsis/pneumonia/cellulitis of the left lower extremity -cellulitis of the left lower extremity -suspected pneumonia Gram-positive versus Gram-negative - blood culture, urine culture, wound culture negative -continue current IV antibiotic #Hematology Pancytopenia-status post blood transfusion History of GI bleeding History of bleeding peptic ulcer disease Severe anemia Leukopenia Thrombocytopenia Reticulocytosis Suspected immunosuppression from methotrexate Bilateral DVT-patient with severe anemia, --order in place for inferior vena caval filter -10/01/2024-patient was seen by Dr. Funes, recommendation reviewed and appreciated -status post bone marrow aspiration, pending report -status post blood transfusion Patient had 3 units of PRBC and 3 units of platelates transfused after current admission Peripheral blood smear evealed marked microcytic anemia, marked thrombocytopenia, mild leukopenia with a few hypersegmented neutrophils. Bone marrow study Finding revealed mild nonspecific atypical myeloid findings without overt increase in blasts. No immunophenotypic evidence of B-cell or T- cell lymphoproliferative disorder -monitor any sign or symptoms of bleeding -monitor CBC, # Rheumatology -history of rheumatoid arthritis with bilateral hand deformity/contracture -monitor clinically # Metabolic/ Endocrine -hypokalemia replenished -prediabetes, HGB A1c 6.3 -insulin sliding scale Mild hyponatremia Lactic acidosis-resolved -continue current management #Skin or elementary Skin excoriation and erythema around genitalia/inner thigh bilaterally, sacrum area and back of the thigh Patient with septic shock, pancytopenia, s/p blood transfusion. needed another unit of blood transfusion today. Patient has bilateral lower extremity DVT, status post IV filter . On IV fluid and IV antibiotic. Patient is clinically unstable to be transferred at this time. DVT prophylaxis pantoprazole DVT prophylaxis-patient on IVC filter. Patient with severe anemia with thrombocytopenia, no antiplatelet or blood thinner at this moment Drips-on Levophed Lines-left internal jugular vein central line Glynn's catheter please Central line in the right internal jugular vei established 09/30/2024 On Glynn's catheter since admission Antibiotic Meropenem and vancomycin as per pharmacy protocol Goals of care/advance care planning Code status ; discussed with the patient >15 minutes PUD prophylaxis: Pantoprazole DVT prophylaxis: Patient with severe anemia with thrombocytopenia, no antiplatelet or blood thinner at this moment Plan discussed with Dr. Padilla, nursing staff, patient, Son Total time spent on patient evaluation, chart review, assessment and plan, total advance care time spent 84minutes Plan discussed with: Patient, Son (RN) Dietary Evaluation Review Comments: 1) Glucerna 8fl oz TID 2) CCHO 60gm + 2 gm Na diet 3) Zeeshan 1 pk BID, MVI 1 tab daily, [id number] BID, Zinc sulfate 220mg daily x 10 days 4) Continue current plan of care Expected Outcomes/Goals: Pt will meet >75% estimated needs Fu 5-7 days CC Plasma Assessment Blood Product Administration S: [id number] NICKOLAS ZAPATA RESIDENT Oct 05, 2024 12:40
--- NOTE | 2024-10-05 17:00 | MEDREC ---
[facility] ASP Intervention Section I [facility] ASP Intervention: Deescalate AB based on CS (PLEASE CONSIDER DE-ESCALATION BASED ON CULTURE RESULTS) BYRON THORNE PHARMACIST Oct 05, 2024 17:00
--- NOTE | 2024-10-05 17:15 | DVHDSRES ---
Discharge Summary Date of Admission Resident Creating Document: NICKOLAS ZAPATA RESIDENT Sep 30, 2024 at 05:34 Date of Discharge: Oct 05, 2024 Admitting Diagnosis Sepsis, DVT, pancytopenia Labs/Diagnostic Data: Laboratory Results Test 10/05/24 14:18 10/05/24 11:56 10/05/24 05:09 10/03/24 02:22 Vancomycin Level Trough 22.7 ug/mL (5-10) POC Glucose 143 mg/dl (70-106) White Blood Count 4.2 10^3/uL (4.4-10.8) Red Blood Count 2.76 10^6/uL (4.0-5.20) Hemoglobin 9.0 g/dL (12.2-16.2) Hematocrit 26.2 % (36.0-46.0) Mean Corpuscular Volume 94.8 fL (80.0-100.0) Mean Corpuscular Hemoglobin 32.4 pg (28.0-32.0) Mean Corpuscular Hemoglobin Concent 34.2 g/dL (32.0-36.0) Red Cell Distribution Width 14.9 % (11.8-14.3) Platelet Count 22 10^3/uL (140-450) Mean Platelet Volume 8.7 fL (6.9-10.8) Neutrophils (%) (Auto) % (37.0-80.0) Lymphocytes (%) (Auto) % (10.0-50.0) Monocytes (%) (Auto) % (0.0-12.0) Basophils (%) (Auto) % (0.0-2.0) Neutrophils # (Auto) 10 ^3/uL (1.6-8.6) Lymphocytes # (Auto) 10 ^3/uL (0.4-5.4) Monocytes # (Auto) 10 ^3/uL (0-1.3) Differential Total Cells Counted 100.0 (100) Neutrophils % (Manual) 46 (37.0-80.0) Band Neutrophils % (Manual) 1 Lymphocytes % (Manual) 17 (10.0-50.0) Monocytes % (Manual) 20 (0-12) Eosinophils % (Manual) 8 (0-7) Basophils % (Manual) 0 (0.0-2.0) Metamyelocytes % (manual) 0 Myelocytes % (Manual) 0 Promyelocytes % (Manual) 0 Blast Cells % (Manual) 8 Reactive Lymphocytes 0 Platelet Estimate Markedly decreased Sodium Level 137 mmol/L (136-145) Potassium Level 3.6 mmol/L (3.5-5.1) Chloride Level 109 mmol/L (98-107) Carbon Dioxide Level 23 mmol/L (20-31) Anion Gap 5 (5-15) Blood Urea Nitrogen 16 mg/dL (9-23) Creatinine 0.46 mg/dL (0.550-1.02) Glomerular Filtration Rate Calc 97 mL/min (>90) BUN/Creatinine Ratio 34.8 (10.0-20.0) Serum Glucose 106 mg/dL (74-106) Calcium Level 7.5 mg/dL (8.7-10.4) Magnesium Level 1.9 mg/dL (1.6-2.6) Total Bilirubin 0.8 mg/dL (0.2-1.0) Aspartate Amino Transferase (AST) 18 U/L (13-40) Alanine Aminotransferase (ALT) 16 U/L (7-40) Alkaline Phosphatase 75 U/L (46-116) Total Protein 3.8 g/dL (5.7-8.2) Albumin 2.3 g/dL (3.2-4.8) Test 10/02/24 17:20 10/02/24 04:45 09/30/24 10:02 09/30/24 05:25 Eosinophils (%) (Auto) % (0.0-7.0) Eosinophils # (Auto) 10 ^3/uL (0-0.8) Basophils # (Auto) 10 ^3/uL (0-0.2) Nucleated Red Blood Cells % Hypersegmented Neutrophils Present Reticulocyte Count (auto) 2.89 % (0.5-1.5) Haptoglobin 97 mg/dL (42-346) Hemoglobin A1c 6.3 % A1C (<5.7) Lactic Acid Level 1.4 mmol/L (0.4-2.0) Phosphorus Level 2.4 mg/dL (2.4-5.1) Iron Level 160 ug/dL (50-170) Total Iron Binding Capacity 179 ug/dL (250-425) Percent Iron Saturation 89.4 % (15-50) Ferritin 1392.6 ng/mL (10-291) C-Reactive Protein High Sensitivity 9.86 mg/dL (<1.0) B-Type Natriuretic Peptide 190.35 pg/mL (0-100) Triglycerides Level 82 mg/dL (< 150) Cholesterol Level 73 mg/dL (< 200) LDL Cholesterol 32 mg/dL (< 100) HDL Cholesterol 21 mg/dL (40-59) Vitamin B12 Level 261 pg/mL (211-911) Vitamin D 25-Hydroxy 35.7 ng/mL (30.0-100) Folic Acid 1.03 ng/mL (>5.38) Thyroid Stimulating Hormone (TSH) 2.96 uIU/mL (0.55-4.78) Anti-Nuclear Antibody Screen Negative (Negative) Stool Occult Blood Negative (Negative) Stool Occult Blood Sample #3 (Negative) Test 09/30/24 01:08 09/29/24 23:20 09/29/24 22:59 09/29/24 22:00 Troponin I High Sensitivity 39 ng/L (</=34) Influenza Type A Antigen Negative (Negative) Influenza Type B Antigen Negative (Negative) SARS-CoV-2 Antigen (Rapid) Negative (NEGATIVE) Ammonia 31 umol/L (11-32) Anisocytosis (manual) Slight Microcytosis Slight Ovalocytes Few Schistocytes Few Prothrombin Time 13.1 sec (9.3-11.8) Prothrombin Time INR 1.26 (0.9-1.15) Urine Color Yellow (Yellow) Urine Clarity Ex.turbid (Clear) Urine pH 5.5 (5.0-9.0) Urine Specific [place] 1.015 (1.001-1.035) Urine Protein 1+ (Negative) Urine Ketones Negative (Negative) Urine Blood 1+ /uL (Negative) Urine Nitrite Negative (Negative) Urine Bilirubin Negative (Negative) Urine Urobilinogen Normal mg/dL (Negative) Urine Leukocyte Esterase 3+ /uL (Negative) Urine RBC None seen /hpf (0 - 4) Urine Microscopic WBC 482 /HPF (0-5) Urine Squamous Epithelial Cells None seen /hpf (<5) Urine Bacteria Many /hpf (None Seen) Urine Mucus Moderate (None Seen) Urine Glucose Normal mg/dL (Normal) Creatine Kinase 21 U/L (34-145) Urine Opiates Screen Neg (NEGATIVE) Urine Fentanyl Screen Neg (NEGATIVE) Urine Barbiturates Screen Neg (NEGATIVE) Urine Phencyclidine Screen Neg (NEGATIVE) Urine Amphetamines Screen Neg (NEGATIVE) Urine Benzodiazepines Screen Neg (NEGATIVE) Urine Cocaine Screen Neg (NEGATIVE) Urine Cannabinoids Screen Neg (NEGATIVE) Plasma/Serum Blood Alcohol < 3.0 mg/dL (<10) Other Laboratory Tests 10/05/24 05:09 Brief Hx & Hospital Course: HPI-Patient is 79 years old female with past medical history of hypertension, rheumatoid arthritis on methotrexate, history of upper GI bleeding due to peptic ulcer disease due to ibuprofen, urinary incontinence was brought in by the EMS with the hospital due to generalized weakness and declined functional status. Provider gathered information from patient's son Paulino, and patient. As per son patient has been feeling sick for last 1 month when she had fever, cough and congestion flu-like symptoms and that got better within 2 weeks. But last 1 week patients clinical condition was getting worse, patient was less energetic with a poor appetite, patient was less interactive with the son over the phone. As per patient who spoke to patient's roommate that she was not really getting out of the bed or chair the ambulate. He was feeling tired, fatigued, decreased appetite, not willing to talk or engage in conversation with the son lately. Son feel like patient was elevated confused lately but before she was alert and oriented x4. So son drove over from [address] to check on her and found her lying on the floor on feces and decided to call EMS. Patient was also confused at home where she lives with a roommate. As per son patient was admitted at [facility] in 2018 due to bleeding peptic ulcer and had 4 units of blood transfusion with the 4 units of plasma. On arrival patient was found hypotensive with altered mental status, confused. Blood pressure was as low as 86/ 43, chronic up to 141, tachypneic with a respiration 24, patient is 98.3. Lab workup revealed pancytopenia with leukopenia WBC 3.3, severe anemia with a hemoglobin 4.3, thrombocytopenia with platelets 15, MCV elevated 107.3, elevated RDW 28.9, hyponatremia with a sodium 132, potassium 4.3, increased anion gap 18, BUN 31, serum creatinine 0.71 hyperglycemia with blood sugar 278, lactic acidosis with lactic acid 10.1, calcium 8.8, magnesium 1.9, with a serum total bilirubin 2.4, AST 11, ALT 11, phosphatase 80, ammonia 31, creatinine kinase 21, INR 0.26, mildly elevated elevated troponin I 39, albumin 3.2, TSH 0.97, HGB 10.66. Stool occult blood test 1st sample negative. UDS negative, urinalysis suggestive for UTI with uterine, leukocyte esterase 3+, WBC 482, bacteria many, blood 1+.. Patient tested negative for COVID-19 and influenza type A and B. CXR suspected right lower lung opacity, CT abdomen and pelvis revealed-Trace bilateral pleural effusion with bibasilar opacities. More nodular opacity in the right lower lobe may represent focal infectious process or round atelectasis. Prominent gallbladder with mild pericholecystic fluid, nonspecific, correlation with clinical symptoms and possible ultrasound is recommended. 3. Nonspecific colonic wall thickening may represent colitis versus nondistention. 4. 1.1 cm calculus in the left renal pelvis with mildly prominent left renal collecting system.The uterus is retroverted live multiple fibroids some of which are calcified, CT head -No acute intracranial abnormality. Doppler study of the bilateral lower extremity revealed thrombus from bilateral common femoral vein to posterior tibial vein. Workup revealed iron 160, TIBC 179, % saturation 89.4, ferritin 1392, BNP 190, vitamin B12 261, vitamin D25 35.7, folic acid 109, TSH 2.96. UDS negative. Patient had inferior vena caval filter place on 0 09/30/24 due to bilateral lower extremity DVT. Revealed LVEF 65% with mild TR. Patient had 3 units of PRBC and 3 units of platelates transfused during current admission. Was seen by hemato oncologist for pancytopenia. Peripheral blood smear revealed marked microcytic anemia, mild thrombocytopenia mild leukopenia with a few hypoxemic neutrophil. Bone marrow study revealed mild nonspecific atypical myeloid findings without overt increase in blast. No immunophenotypic evidence of B-cell or T-cell blood culture and urine culture no growth. lymphoproliferative disorder. MRSA screening negative. Patient was anemic and thrombocytopenic. Treated with IV antibiotic meropenem and vancomycin. Patient's symptom improved clinically. Patient was hemodynamically stable and on p.o. diet. Tolerating well. Patient is awake and alert x4. Patient is hemodynamically stable to be transferred to [facility]. Order in place for discharge to [facility]. Social service consult order also in place. Patient is hemodynamically stable. Operations or Procedures [place] [address] Ph: [phone] DIAGNOSTIC IMAGING Diagnostic Imaging Report : [id number] Signed PATIENT: AILIN JORGENSENT: [id number] UNIT: [id number] : 1945 LOC: ER ROOM / BED: / AGE / SEX: 79 / F ADM STATUS: REG ER SERVICE 54 ORDERING PHYSICIAN: DALLAS FABIAN MD PROCEDURE(s): CXRP - CHEST PORTABLE REASON: weakness ORDER NUMBER(s): [id number], ACCESSION NUMBER(s): [id number] CHEST RADIOGRAPH Indication: weakness Technique: Single frontal view of the chest was obtained COMPARISON: None FINDINGS: Lines and Tubes: None Lungs: Clear Pleura: No effusion.No pneumothorax. Cardiomediastinal contours: Unremarkable IMPRESSION: No abnormality demonstrated. ATED BY: TREVON HAMILTON MD DICTATED DATE/TIME: 09/29/242054 SIGNED BY: TREVON HAMILTON MD SIGNED DATE/TIME: 09/29/242054 CC: [place] [address] Ph: [phone] DIAGNOSTIC IMAGING Diagnostic Imaging Report : [id number] Signed PATIENT: AILIN JORGENSENCCT: [id number] UNIT: [id number] : 1945 LOC: ER ROOM / BED: / AGE / SEX: 79 / F ADM STATUS: REG ER SERVICE 8 ORDERING PHYSICIAN: MIKEY HAIRSTON MD PROCEDURE(s): ABPLIV - CT AB PEL WITH IV CON ONLY REASON: Suspected sepsis ORDER NUMBER(s): [id number], ACCESSION NUMBER(s): [id number] Exam: CT CT AB PEL WITH IV CON ONLY History: Suspected sepsis Comparison Study: None available at time of dictation. Contrast: 100 cc Omnipaque 300 TECHNIQUE: A digital shoder filler image was obtained. During the uneventful, intravenous administration of contrast material, multislice data acquisition was obtained through the abdomen and pelvis. The data set was subsequently reconstructed into axial images. Images were reviewed on a work station using a combination of axial and multiplanar using a variety of window levels and settings. All CT scans at this medical facility are performed using dose modulation techniques as appropriate to a performed exam including the following: Automated exposure control was utilized; adjustment of the MA and/or KV according to patient size; and use of iterative reconstruction technique. Radiation Dose Information: CT Dose: Dose-length product is 1541.3 mGy*cm FINDINGS: Imaged portions of the lung bases demonstrate bibasilar airspace opacities with small right pleural effusion and trace left pleural effusion. Nodular opacity in the right lower lobe measuring 3.0 cm. Liver, spleen, pancreas and adrenal glands appear unremarkable. The kidneys enhance symmetrically. 1.0 cm right renal cyst. 1.1 cm calculus in the left renal pelvis with mild prominence of the left renal collecting system. Additional 4 mm calculus in the left upper pole. The gallbladder appears mildly prominent with enhancement of the gallbladder wall and trace pericholecystic fluid. The uterus is retroverted live multiple fibroids some of which are calcified. The ascending colon demonstrates mild wall thickening. Similar appearance of the descending colon. Marked diverticulosis of the sigmoid colon. Small amount of free fluid. No evidence of free intraperitoneal air. Bilateral femoral hardware is noted. IMPRESSION: 1. Trace bilateral pleural effusion with bibasilar opacities. More nodular opacity in the right lower lobe may represent focal infectious process or round atelectasis. 2. Prominent gallbladder with mild pericholecystic fluid, nonspecific, correlation with clinical symptoms and possible ultrasound is recommended. 3. Nonspecific colonic wall thickening may represent colitis versus nondistention. 4. 1.1 cm calculus in the left renal pelvis with mildly prominent left renal collecting system. ATED BY: CAMILLE TREJO MD DICTATED DATE/TIME: 09/30/24233 SIGNED BY: CAMILLE TREJO MD SIGNED DATE/TIME: 09/30/24233 CC: [address] [address] Ph: [phone] DIAGNOSTIC IMAGING Diagnostic Imaging Report : [id number] Signed PATIENT: [facility]ENSENUNC HEALTHCCT: [id number] UNIT: [id number] : 1945 LOC: ER ROOM / BED: / AGE / SEX: 79 / F ADM STATUS: REG ER SERVICE 0 ORDERING PHYSICIAN: MIKEY HAIRSTON MD PROCEDURE(s): HWOCT - HEAD WITHOUT CONTRAST REASON: Altered mental status ORDER NUMBER(s): [id number], ACCESSION NUMBER(s): [id number] EXAM: CT HEAD WITHOUT CONTRAST INDICATION: Altered mental status TECHNIQUE: CT of the head without intravenous contrast. Radiation Dose Information: CT Dose: CTDI volume is 50.77 mGy. Dose-length product is 1541.26 mGy*cm The dose indicators for CT are the volume Computed Tomography (CT) Dose Index (CTDIvol) and the Dose Length Product (DLP), and are measured in units of mGy and mGy-cm, respectively. These indicators are not patient dose, but values generated from the CT scanner acquisition factors. The report includes radiation exposure data for exposures received during this examination. COMPARISON: None FINDINGS: There is no evidence of acute intracranial hemorrhage, extra-axial collection, mass effect, midline shift, herniation or hydrocephalus. The ventricles, sulci and cisterns are age appropriate. Right frontal calcified meningioma. The farmer-white differentiation is intact. Patchy periventricular and subcortical white matter hypoattenuation is nonspecific but may be related to small vessel ischemic disease. The visualized paranasal sinuses and mastoid air cells are clear. The surrounding soft tissues and osseous structures are unremarkable. IMPRESSION: 1. No acute intracranial abnormality. ATED BY: CAMILLE TREJO MD DICTATED DATE/TIME: 09/30/24227 SIGNED BY: CAMILLE TREJO MD SIGNED DATE/TIME: 09/30/24227 CC: [place] [address] Ph: [phone] DIAGNOSTIC IMAGING Diagnostic Imaging Report : [id number] Signed PATIENT: AILIN JORGENSENCCT: [id number] UNIT: [id number] : 1945 LOC: ER ROOM / BED: / AGE / SEX: 79 / F ADM STATUS: REG ER SERVICE 0 ORDERING PHYSICIAN: MIKEY HAIRSTON MD PROCEDURE(s): HWOCT - HEAD WITHOUT CONTRAST REASON: Altered mental status ORDER NUMBER(s): [id number], ACCESSION NUMBER(s): [id number] EXAM: CT HEAD WITHOUT CONTRAST INDICATION: Altered mental status TECHNIQUE: CT of the head without intravenous contrast. Radiation Dose Information: CT Dose: CTDI volume is 50.77 mGy. Dose-length product is 1541.26 mGy*cm The dose indicators for CT are the volume Computed Tomography (CT) Dose Index (CTDIvol) and the Dose Length Product (DLP), and are measured in units of mGy and mGy-cm, respectively. These indicators are not patient dose, but values generated from the CT scanner acquisition factors. The report includes radiation exposure data for exposures received during this examination. COMPARISON: None FINDINGS: There is no evidence of acute intracranial hemorrhage, extra-axial collection, mass effect, midline shift, herniation or hydrocephalus. The ventricles, sulci and cisterns are age appropriate. Right frontal calcified meningioma. The farmer-white differentiation is intact. Patchy periventricular and subcortical white matter hypoattenuation is nonspecific but may be related to small vessel ischemic disease. The visualized paranasal sinuses and mastoid air cells are clear. The surrounding soft tissues and osseous structures are unremarkable. IMPRESSION: 1. No acute intracranial abnormality. ATED BY: CAMILLE TREJO MD DICTATED DATE/TIME: 09/30/24227 SIGNED BY: CAMILLE TREJO MD SIGNED DATE/TIME: 09/30/24227 CC: [place] [address] Ph: [phone] DIAGNOSTIC IMAGING Diagnostic Imaging Report : [id number] Signed PATIENT: AILIN JORGENSENCCT: [id number] UNIT: [id number] : 1945 LOC: OVERFLOW ROOM / BED: [address] [place] [address] AGE / SEX: 79 / F ADM STATUS: ADM IN SERVICE 0 ORDERING PHYSICIAN: CAROLYNN GIRON PROCEDURE(s): BLDVT - BiLat Lower DVT REASON: Bilateral leg swelling ORDER NUMBER(s): [id number], ACCESSION NUMBER(s): [id number] Bilateral lower extremity venous duplex Clinical History: Bilateral leg swelling Comparison: None Technique: Duplex Doppler evaluation of the deep venous systems of both lower extremities from the common femoral veins to the popliteal veins including color Doppler and spectral/pulsed waveform analysis was performed. Findings: Thrombus from bilateral common femoral vein to posterior tibial vein Impression: Bilateral DVT from the common femoral vein through the posterior tibial vein ATED BY: LILLIE ESPARZA MD DICTATED DATE/TIME: 09/30/24823 SIGNED BY: LILLIE ESPARZA MD SIGNED DATE/TIME: 09/30/24823 CC: [place] [address] Ph: [phone] DIAGNOSTIC IMAGING Diagnostic Imaging Report : [id number] Signed PATIENT: AILIN JORGENSENINEACCT: [id number] UNIT: [id number] : 1945 LOC: OVERFLOW ROOM / BED: [address] [place] [address] AGE / SEX: 79 / F ADM STATUS: ADM IN SERVICE 1038 ORDERING PHYSICIAN: CAROLYNN GIRON RESIDENT PROCEDURE(s): GA - CT GUIDANCE FOR NEEDLE PLACEME REASON: BONE MARROW BX ORDER NUMBER(s): [id number], ACCESSION NUMBER(s): [id number] PROCEDURE: CT GUIDED BIOPSY OF HISTORY: BONE MARROW BX COMPARISON: None PROCEDURE: Informed consent and time-out was performed before the procedure. The left posterior pelvic bone was marked, sterilized, draped, and locally anesthetized using approximately 5 ml of 1% lidocaine. Axial CT images were used for localization. A 11 gauge [employer] Bone Biopsy kit was used to take 14 mL aspirate and 1 core. The biopsy needle was then removed. No immediate complications noted. FINDINGS: Axial CT images demonstrates biopsy needle within the left posterior pelvic bone. IMPRESSION: Successful CT-guided biopsy of the left posterior pelvic bone. ATED BY: REY TATUM MD DICTATED DATE/TIME: 09/30/24 1218 SIGNED BY: REY TATUM MD SIGNED DATE/TIME: 09/30/24 1218 CC: [place] [address] Ph: [phone] DIAGNOSTIC IMAGING Diagnostic Imaging Report : [id number] Signed PATIENT: AILIN JORGENSENT: [id number] UNIT: [id number] : 1945 LOC: OVERFLOW ROOM / BED: 1009-ERD / A AGE / SEX: 79 / F ADM STATUS: ADM IN SERVICE 1039 ORDERING PHYSICIAN: CAROLYNN GIRON PROCEDURE(s): PL2CT - PELVIS WO CONTRAST REASON: BONE MARROW BX ORDER NUMBER(s): [id number], ACCESSION NUMBER(s): [id number] CT PELVIS WO CONTRAST HISTORY: BONE MARROW BX COMPARISON: None PROCEDURE: Informed consent and time-out was performed before the procedure. The left posterior pelvic bone was marked, sterilized, draped, and locally anesthetized using approximately 5 ml of 1% lidocaine. Axial CT images were used for localization. A 11 gauge [employer] Bone Biopsy kit was used to take 14 mL aspirate and 1 core. The biopsy needle was then removed. No immediate complications noted. FINDINGS: Axial CT images demonstrates biopsy needle within the left posterior pelvic bone. IMPRESSION: Successful CT-guided biopsy of the left posterior pelvic bone. ATED BY: REY TATUM MD DICTATED DATE/TIME: 09/30/241216 SIGNED BY: REY TATUM MD SIGNED DATE/TIME: 09/30/241216 CC: [place] [address] Ph: [phone] DIAGNOSTIC IMAGING Diagnostic Imaging Report : [id number] Signed PATIENT: AILIN JORGENSENT: [id number] UNIT: [id number] : 1945 LOC: ICU CENTRL ROOM / BED: 0266 / A AGE / SEX: 79 / F ADM STATUS: ADM IN SERVICE 0400 ORDERING PHYSICIAN: NICKOLAS ZAPATA PROCEDURE(s): CXRP - CHEST PORTABLE REASON: PNA/CHF ORDER NUMBER(s): [id number], ACCESSION NUMBER(s): [id number] EXAM: XR Chest, 1 View CLINICAL INDICATION: PNA/CHF TECHNIQUE: Frontal view of the chest. COMPARISON: XY CHEST XRAY 1 VIEW on DOS: 09/30/24, XY CHEST PORTABLE on DOS: 09/29/24 FINDINGS: LUNGS AND PLEURAL SPACES: Mild pulmonary congestion. No consolidation. No pneumothorax. HEART: Unremarkable. No cardiomegaly. MEDIASTINUM: Unremarkable. Normal mediastinal contour. BONES/JOINTS: Unremarkable. No acute fracture. TUBES, LINES AND DEVICES: Left internal jugular central venous catheter tip in the superior vena cava. OTHER FINDINGS: . IMPRESSION: Mild pulmonary congestion. ATED BY: FAYE CHRIS MD DICTATED DATE/TIME: 10/01/24543 SIGNED BY: FAYE CHRIS MD SIGNED DATE/TIME: 10/01/24543 CC: Patient: AILIN JORGENSEN Acct: [id number] : 1945 Loc: ICU CENTRL Age/Sex: 79/F Room: [facility] / Bed: A Attending Phy: CAROLYNN GIRON RESIDENT Operative Report - 2 Report Details Date: 09/30/24 Preop Diagnosis: Bilateral DVT, severe thrombocytopenia, Postop Diagnosis: placement of left placement of left internal jugular catheter /central line Surgeon: Cheryl Montelongo MD Anesthesiologist: Conscious sedation Anesthesia: Mac, Local ( conscious sedation was ordered by ri. The patient was monitored throughout the entirety of the procedure) Implant: Dulce vena cava filter. Consent: The patient was informed of the risks and benefits of the procedure. These include but are not limited to complications of anesthesia, postoperative infection, incomplete relief of symptoms, recurrence of symptoms, damage to blood vessels, nerves and tendons, deep venous thrombosis, pulmonary embolism and possible need for repeat surgery in the future. Complications: No complications Estimated Blood Loss: 5 cc Findings: Successful placement of vena cava filter Indications for Surgery: Bilateral DVT Name of Procedure Performed Placement of vena cava filter Procedure Details Procedure Details: Prior full informed consent obtained the patient was prepped and draped in usual fashion taken to the laboratory associate in the neck was prepped and draped in usual fashion. We placed a central line under ultrasound and fluoroscopic guidance into the left internal jugular vein. We sutured it with 3-0 silk. We then removed the internal jugular vein catheter from the right side and retained the wire. We then placed a long eight Cambodian sheath into the internal jugular vein and placed a Dulce vena cava filter after obtaining a venogram to delineate the origin of the renal veins. The retrieval tip of the [place] filter was placed below the lowest renal vein. At approximately L3-L4. The sheath was then removed and pressure was held until hemostasis was obtained. Patient tolerated the procedure well there were no complications. Condition Guarded Disposition 2 Still a Patient Date of Service: Sep 30, 2024 Billing Provider: CHERYL MONTELONGO Sr., MD Cardiology Common Codes: 94689-[id number] INP/OBS CARE (High) ( vena cava filter placement. Placement of left internal jugular venous central line catheter. Venogram.) CHERYL MONTELONGO Sr., MD Sep 30, 2024 21:25 DICTATED BY:CHERYL MONTELONGO Sr., MD DICTATED DATE/TIME:09/30/242124 ELECTRONICALLY SIGNED BY:CHERYL MONTELONGO Sr., MD 09/30/242124 ELECTRONICALLY CO-SIGNED BY: [place] [address] Ph: [phone] DIAGNOSTIC IMAGING Diagnostic Imaging Report : [id number] Signed PATIENT: AILIN JORGENSENCCT: [id number] UNIT: [id number] : 1945 LOC: ICU CENTR ROOM / BED: [address] [place] [address] AGE / SEX: 79 / F ADM STATUS: ADM IN SERVICE 0534 ORDERING PHYSICIAN: CAROLYNN GIRON RESIDENT PROCEDURE(s): ECIDC - ECHO 2D MODE CARDIAC DOP REASON: NSTEMI probable type II ORDER NUMBER(s): [id number], ACCESSION NUMBER(s): [id number] APPROVED REPORT EXAM: Two-dimensional and M-mode echocardiogram with Doppler and color Doppler. Blood Pressure: 122/61 mmHg INDICATION NSTEMI Probable Type II RISK FACTORS Height: 5' 4", Weight: 145 DIMENSIONS LVDd 4.2 (3.8-5.7cm) LA (2D) 4.0 (1.9-4.0cm) Aortic Root 3.3 (2.0- 3.7cm) LVDs 3.0 (2.5-4.0cm) LA (MM) (1.9-4.0cm) Aortic Cusp Exc 2.1 (1.5- 2.0cm) EF (%) 57.0 (55-70%) Rt. Atrium 3.9 (1.9-4.0cm) Asc. Aorta cm IVSd 1.1 (0.7-1.1cm) RV (D) (1.8-2.4cm) PWd 1.0 (0.7-1.1cm) Mitral Valve Mitral Mitral Stenosis E wave 1.20m/s MV Mean GR. mmHg A wave 1.10m/s MV Peak GR. mmHg E/A ratio 1.1 2D MVA cm2 Aortic Valve Aortic Valve Aortic Stenosis V1 1.10m/s AO Mean GR. 3mmHg V2 1.20m/s AO Peak GR. 6mmHg LVOT Diameter 2.3 (1.8-2.4cm) Doppler ANDRZEJ 3.81cm2 Pulmonic Valve V2 0.80m/s Tricuspid Valve TR Velocity 2.50m/s RVSP 30mmHg Conclusion Technically good study. Sinus rhythm. Aortic root enlargement. Left atrial enlargement. Dilation of the sinuses of Valsalva. Valves appear to be structurally normal. EF of 65% with normal RV function. Mild TR. No pericardial effusion masses or vegetations discernible. SIGNED BY: CHERYL MONTELONGO Sr., MD SIGNED DATE/TIME: 10/02/24 4187 CC: Condition at Discharge: Stable Final Diagnosis/Problems List Septic shock -Acute metabolic encephalopathy likely due to UTI with Sepsis / pneumonia Gram-positive versus Gram-negative Suspected acute pulmonary edema likely due to anemic heart failure/CHF -B/L Leg swelling Likely due to DVT/CHF Suspected pneumonia Gram-positive versus Gram-negative -cellulitis of the left lower extremity Pancytopenia-status post blood transfusion Severe anemia Leukopenia Thrombocytopenia -suspected UTI with sepsis Trace bilateral pleural effusion History of hypertension -Colitis -history of bleeding peptic ulcer disease likely due to ibuprofen -history of endoscopy and colonoscopy in 2018 after patient had GI bleeding with severe anemia Elevated bilirubin pericholecystic fluid Dehydration Left renal calculus 1.1 cm, retroverted Uterus with multiple fibroids some of which are calcified. History of GI bleeding History of bleeding peptic ulcer disease Reticulocytosis Suspected immunosuppression from methotrexate Bilateral DVT-patient with severe anemia, -history of rheumatoid arthritis with bilateral hand deformity/contracture -hypokalemia replenished -prediabetes, HGB A1c 6.3 Mild hyponatremia Lactic acidosis-resolved Skin excoriation and erythema around genitalia/inner thigh bilaterally, sacrum area and back of the thigh Discharge Disposition: Acute Care Facility Discharge Instruct/Medications Diet: Regular Activity: No Restrictions, As Tolerated Follow Up/Referral: FU WITH [facility] Medications: PER SEP Discharge Statement: "Patient was advised to return to the ER or call 911 if any headaches, dizziness, shortness of breath, chest pain, abdominal pain, bleeding, fevers, or worsening of medical condition. Patient was counseled about treatment plan, medications, possible side effects, patientverbalized understanding. All questions were answered to the best of my ability. This discharge took greater then 30 minutes in planning, reviewing documentation, counseling the patient, and discussing with other team members." ASSESSMENT ASSESSMENT Assessment SEPSIS, DVT NICKOLAS ZAPATA RESIDENT Oct 05, 2024 17:15
[2024-10-05] MEDS ORDERED: MEROPENEM 1GM IVPB 50 ML IV SCH (23:00)
== END 2024-10-06 01:45 | disposition short-term general hospital (02) | DRG 871 ==
LOC: EDBD 19:37 → ER 19:37 → OVERFLOW 09-30 05:34 → ICU CENTRL 09-30 20:50 → TELE-EAST 10-02 23:59
PROVIDERS: ADMIT Internal Medicine; ATTEND Internal Medicine
PROC: 079T3ZX Drainage of Bone Marrow, Percutaneous Approach, Diagnostic (ICD-10-PCS; principal; 2024-09-30)
PROC: 30233N1 Transfusion of Nonautologous Red Blood Cells into Peripheral Vein, Percutaneous Approach (ICD-10-PCS; 2024-09-30)
PROC: 02HV33Z Insertion of Infusion Device into Superior Vena Cava, Percutaneous Approach (ICD-10-PCS; 2024-09-30)
PROC: B548ZZA Ultrasonography of Superior Vena Cava, Guidance (ICD-10-PCS; 2024-09-30)
PROC: 07DR3ZX Extraction of Iliac Bone Marrow, Percutaneous Approach, Diagnostic (ICD-10-PCS; 2024-09-30)
PROC: 06H03DZ Insertion of Intraluminal Device into Inferior Vena Cava, Percutaneous Approach (ICD-10-PCS; 2024-09-30)
PROC: B5191ZZ Fluoroscopy of Inferior Vena Cava using Low Osmolar Contrast (ICD-10-PCS; 2024-09-30)
PROC: 30233R1 Transfusion of Nonautologous Platelets into Peripheral Vein, Percutaneous Approach (ICD-10-PCS; 2024-10-01)
DX: A41.9 Sepsis, unspecified organism (principal); G93.41 Metabolic encephalopathy; J15.69 Pneumonia due to other Gram-negative bacteria; R57.8 Other shock; I50.31 Acute diastolic (congestive) heart failure; R65.21 Severe sepsis with septic shock; J15.9 Unspecified bacterial pneumonia; D61.818 Other pancytopenia; N39.0 Urinary tract infection, site not specified; L03.116 Cellulitis of left lower limb; E87.20 Acidosis, unspecified; E87.1 Hypo-osmolality and hyponatremia; I82.413 Acute embolism and thrombosis of femoral vein, bilateral; I82.443 Acute embolism and thrombosis of tibial vein, bilateral; D84.821 Immunodeficiency due to drugs; K52.9 Noninfective gastroenteritis and colitis, unspecified; Z20.822 Contact with and (suspected) exposure to COVID-19; E86.0 Dehydration; I11.0 Hypertensive heart disease with heart failure; R32 Unspecified urinary incontinence; M06.9 Rheumatoid arthritis, unspecified; E87.6 Hypokalemia; S70.312A Abrasion, left thigh, initial encounter; S70.311A Abrasion, right thigh, initial encounter; S30.810A Abrasion of lower back and pelvis, initial encounter; D25.9 Leiomyoma of uterus, unspecified; N85.4 Malposition of uterus; T45.1X5A Adverse effect of antineoplastic and immunosuppressive drugs, initial encounter; Z79.899 Other long term (current) drug therapy; Z79.1 Long term (current) use of non-steroidal anti-inflammatories (NSAID); Z91.81 History of falling; Z87.11 Personal history of peptic ulcer disease; X58.XXXA Exposure to other specified factors, initial encounter; Y93.89 Activity, other specified; Y92.89 Other specified places as the place of occurrence of the external cause; Y99.8 Other external cause status
CPT/HCPCS: 10005; 36415; 36556; 37191; 70450; 71045; 72192; 74177; 75825; 77012; 80048; 80053; 80061; 80202; 80307; 80320; 81001; 82140; 82270; 82306; 82550; 82607; 82728; 82746; 82962; 83010; 83036; 83540; 83550; 83605; 83735; 83880; 84100; 84443; 84484; 85007; 85025; 85027; 85045; 85060; 85610; 86038; 86141; 86850; 86880; 86900; 86901; 86920; 87040; 87081; 87086; 87426; 87804; 92610; 93005; 93306; 93970; 96361; 96365; 96367; 97163; 99152; G0378; J1815; J2003; J2185; J2250; J2470; J7060; Q9967